=== PATIENT | female | born 1945 | race Caucasian/White ===

== ENCOUNTER 2017-01-17 12:45 | Emergency (ER) | payer MEDICARE, OTHER ==
[2017-01-17 13:10] VITALS: BP 170/86
--- NOTE | 2017-01-17 13:11 | ED Physician Documentation ---
PD HPI SKIN - Stated complaint Stated Complaint: RASH - Chief complaint Chief Complaint: Wound - History obtained from History obtained from: Patient - History of Present Illness Timing - onset: Other (She has chronic back pain and sciatica and had an increase in her back pain a few days ago, but today noticed a rash to the right side of her tailbone radiating down towards the groin. She wonders if she might have shingles.) Review of Systems Constitutional: denies: Fever, Chills Nose: denies: Rhinorrhea / runny nose, Congestion Cardiac: denies: Chest pain / pressure, Palpitations Respiratory: denies: Dyspnea, Cough PD PAST MEDICAL HISTORY - Present Medications Home Medications: Ambulatory Orders Medication Instructions Recorded Confirmed Acyclovir 800 mg PO 5XD 10 Days 01/17/17 HYDROcod/ACETAM 5/325 [[place] 5/325] 1 - 2 ea PO Q6H PRN #15 tablet 01/17/17 predniSONE [Deltasone] 20 mg PO [id number] #21 tab 01/17/17 - Allergies Allergies/Adverse Reactions: Allergies Allergy/AdvReac Type Severity Reaction Status Date / Time acetaminophen [From Percocet] Allergy Hives Verified 01/17/17 13:11 oxycodone HCl * Allergy Hives Verified 01/17/17 13:11 [From Percocet] Penicillins Allergy Rash Verified 01/17/17 13:11 Sulfa (Sulfonamide Allergy Rash Verified 01/17/17 13:11 Antibiotics) PD ED PE NORMAL - Vitals Vital signs reviewed: Yes - General General: Alert and oriented X 3, No acute distress - Derm Derm: Other (Typical shingles to the right side of the sacrum and right below the gluteal crease on the right.) - Neuro Neuro: Alert and oriented X 3, Normal speech - Psych Psych: Normal mood, Normal affect Results - Vitals Vitals: Vital Signs - 24 hr 01/17/17 12:50 Temperature 36.6 C Heart Rate 72 Respiratory 12 Rate Blood Pressure 170/86 H O2 Saturation 96 Oxygen O2 Source Room air PD MEDICAL DECISION MAKING - ED course ED course: The patient was counseled as to the diagnosis and need for followup. I counseled the patient with regard to signs and symptoms that would necessitate an urgent reevaluation in the emergency department. They understand they are welcome to return at any time if worse or if not improving as expected. This document was made in part using voice recognition software. While efforts are made to proofread this document, sound alike and grammatical errors may occur. Departure - Departure Disposition: 01 Home, Self Care Clinical Impression: Herpes zoster Qualifiers: Herpes zoster complications: without complications Qualified Code(s): B02.9 - Zoster without complications Condition: Good Record reviewed to determine appropriate education?: Yes Instructions: ED Shingles Prescriptions: Acyclovir 800 mg PO 5XD 10 Days predniSONE [Deltasone] 20 mg PO [id number] #21 tab HYDROcod/ACETAM 5/325 [[place] 5/325] 1 - 2 ea PO Q6H PRN #15 tablet PRN Reason: Pain Comments: Call your doctor to arrange a follow up appointment. Make the next available appointment. In the interim return anytime if worse or if new symptoms develop. Your blood pressure was elevated today on check in to the emergency department. This does not mean that you have hypertension, it is a common phenomenon to check into the emergency department and have elevated blood pressure. I recommend that you see your primary care physician within the week to have it rechecked when you're feeling better. Do not drink or drive while on narcotic pain medicine. Note that many narcotic pain relievers also contain tylenol/acetaminophen. Please ensure that your total dose of acetaminophen from all sources does not exceed 3 grams (3000mg) per day. You may constipated on this medication, take a stool softener such as "Colace" twice a day while you are on it. Also recommend a cgys-vll-neosboy laxative such as senna or MiraLAX any day that you do not have a bowel movement. If you received narcotic pain medication in the emergency department, do not drive or operate machinery for the next 24 hours.
== END 2017-01-17 13:14 | disposition home or self-care (01) ==
LOC: ED 12:45
DX: B02.9 Zoster without complications (principal); R03.0 Elevated blood-pressure reading, without diagnosis of hypertension
CPT/HCPCS: 99283

== ENCOUNTER 2017-04-14 07:43 | Outpatient (CLI) | payer MEDICARE, OTHER ==
[2017-04-14 11:52] LABS: BASOPHILS % (AUTO) 0.6 %; EOSINOPHILS # (AUTO) 0.1 10^3/uL (0.0-0.7); EOSINOPHILS % (AUTO) 2.2 %; HCT - HEMATOCRIT 43.5 % (37.0-47.0); HGB - HEMOGLOBIN 14.8 g/dL (12.0-16.0); LYMPHOCYTES # (AUTO) 1.5 10^3/uL (1.5-3.5); LYMPHOCYTES % (AUTO) 31.5 %; MEAN CORPUSCULAR HEMOGLOBIN 30.4 pg (27.0-31.0); MEAN CORPUSCULAR HGB CONC 34.1 g/dL (32.0-36.0); MEAN CORPUSCULAR VOLUME 89.1 fL (81.0-99.0); MEAN PLATELET VOLUME 9.3 fL (7.9-10.8); MONOCYTES # (AUTO) 0.3 10^3/uL (0.0-1.0); NEUTROPHILS # (AUTO) 2.8 10^3/uL (1.5-6.6); NEUTROPHILS % (AUTO) 59.7 %; RED BLOOD COUNT 4.88 10^6/uL (4.20-5.40); RED CELL DISTRIBUTION WIDTH 12.8 % (12.0-15.0); UNCORRECTED WHITE BLOOD COUNT 4.6 x10^3/uL; WHITE BLOOD COUNT 4.6 x10^3/uL (4.8-10.8)
[2017-04-14 12:03] LABS: ALBUMIN/GLOBULIN RATIO 1.6 (1.0-2.2); BILIRUBIN,TOTAL 0.8 mg/dL (0.2-1.0); BUN - BLOOD UREA NITROGEN 15 mg/dL (6-20); CALCIUM 9.6 mg/dL (8.5-10.3); CARBON DIOXIDE - CO2 28 mmol/L (21-32); CHLORIDE 105 mmol/L (101-111); CHOLESTEROL 253 mg/dL; CREATININE 0.6 mg/dL (0.4-1.0); GFR - MDRD 98 (>89); GLUCOSE 103 mg/dL (70-100); HDL CHOLESTEROL 51 mg/dL; LDL/HDL RATIO 3.5 (<4.4); POTASSIUM 3.9 mmol/L (3.5-5.0); SODIUM 139 mmol/L (135-145); TOTAL PROTEIN 6.8 g/dL (6.7-8.2); TRIGLYCERIDES 120 mg/dL; VLDL CHOLESTEROL 24 mg/dL
== END 2017-04-14 07:44 | disposition home or self-care (01) ==
LOC: LAB.F 07:43
PROVIDERS: ATTEND Internal Medicine
DX: E78.2 Mixed hyperlipidemia (principal)
CPT/HCPCS: 36415; 80053; 80061; 84443; 85025; 86803

== ENCOUNTER 2017-07-14 12:10 | Emergency (ER) | payer MEDICARE, OTHER ==
[2017-07-14 12:30] VITALS: BP 158/80
--- NOTE | 2017-07-14 13:02 | ED Physician Documentation ---
PD HPI LOWER EXT INJURY - Stated complaint Stated Complaint: LEFT LEG SWOLLEN - Chief complaint Chief Complaint: Ext Problem - History obtained from History obtained from: Patient - History of Present Illness PD HPI LOW EXT INJURY LOCATION: Left, Lower leg, Ankle Type of injury: No: Fall, Twist, Blunt / blow Timing - onset: How many days ago (3-4) Timing - duration: Days Timing - details: Gradual onset, Still present Improved by: Rest, Ice Worsened by: Palpating Associated symptoms: No: Weakness, Numbness Contributing factors: Prior ortho surgery. 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 - Present Medications Home Medications: Ambulatory Orders Medication Instructions Recorded Confirmed Biotin [Biotin] 5,000 mg PO DAILY 07/14/17 07/14/17 Cetrizine 10 mg PO DAILY 07/14/17 07/14/17 Cholesteroff 900 mg PO DAILY 07/14/17 07/14/17 Htp Mood Enhancer 100 mg PO DAILY 07/14/17 Lisinopril 10 mg PO DAILY 07/14/17 07/14/17 Mirbetriq 25 mg PO DAILY 07/14/17 07/14/17 Mv-Mn/FA/Vit K/Lycop/Lut/Coq10 1 tab PO DAILY 07/14/17 07/14/17 [Daily Multivitamin Capsule] [place]-3S/Dha/Epa/Fish Oil/D3 1 each PO 07/14/17 [[place]-3 + D Softgel] Rhodiola Rosea Root 450 mg PO DAILY 07/14/17 - Allergies Allergies/Adverse Reactions: Allergies Allergy/AdvReac Type Severity Reaction Status Date / Time oxycodone HCl * Allergy Hives Verified 07/14/17 12:31 [From Percocet] Penicillins Allergy Rash Verified 07/14/17 12:31 Sulfa (Sulfonamide Allergy Rash Verified 07/14/17 12:31 Antibiotics) - Social History Does the pt smoke?: No Smoking Status: Never smoker Does the pt drink ETOH?: No Does the pt have substance abuse?: No - Immunizations Immunizations are current?: Yes - POLST Patient has POLST: No PD ED PE NORMAL - Vitals Vital signs reviewed: Yes - General General: Alert and oriented X 3, No acute distress, Well developed/nourished - HEENT HEENT: Atraumatic - Neck Neck: Supple, no meningeal sign, No adenopathy - Cardiac Cardiac: RRR - Respiratory Respiratory: Clear bilaterally - Extremities Extremities: No deformity, No tenderness to palpate, No calf tenderness / cord Results - Vitals Vitals: Vital Signs - 24 hr 07/14/17 12:24 Temperature 36.1 C L Heart Rate 75 Respiratory 16 Rate Blood Pressure 158/80 H O2 Saturation 98 Oxygen O2 Source Room air - Rads (name of study) duplex U/S of left leg. Radiology: Prelim report reviewed (no DVT. Superficial phlebitis noted. ) PD MEDICAL DECISION MAKING - ED course Complexity details: reviewed results (no DVT; there is superficial phlebitis by US. ), considered differential, d/w patient Departure - Departure Disposition: 01 Home, Self Care Clinical Impression: Swelling of left lower extremity Superficial thrombophlebitis Qualifiers: Superficial thrombophlebitis-Involved body area: lower extremity Laterality: left Qualified Code(s): I80.02 - Phlebitis and thrombophlebitis of superficial vessels of left lower extremity Condition: Stable Record reviewed to determine appropriate education?: Yes Instructions: ED Phlebitis Superficial Follow-Up: MARNIE DAVEY SI [Primary Care Provider] - Comments: Ibuprofen or naproxen fogi-gtj-aywptok tablets, 2 tablets twice a day for the next week or so. Elevate and rest the leg often but also he has been walking around on it regularly. Heat or warm towels to the sore area in the back of the calf to help soften the phlebitis in the superficial vein. Recheck if not improved over the next week. If you have persistent or worsening symptoms, the ultrasound can be repeated in a week to ensure it is not progressed into the deep veins. Discharge Date/Time: 07/14/17 16:08
--- NOTE | 2017-07-14 15:41 | Ultrasound Report ---
LEFT LEG VENOUS DUPLEX: 07/14/2017 CLINICAL INDICATION: Swelling, pain. TECHNIQUE: Real-time sonographic vascular imaging was performed by the sales force administrator through the left lower extremity utilizing both color flow and Doppler spectral analysis. Multiple charter representative static images were saved for review. FINDINGS: A left lower extremity venous sonogram is performed revealing the common femoral, superficial femoral, profunda femoris, and popliteal veins to be adequately visualized without intraluminal defects. There is normal venous compression, augmentation, phasicity, and spontaneity of venous flow. In the calf, the visualized more cephalad portions of posterior tibial and peroneal veins are grossly compressible, without filling defects. There is superficial thrombophlebitis of the distal greater saphenous vein in the calf. IMPRESSION: NO EVIDENCE OF DEEP VENOUS THROMBOSIS. JOB #: [id number] EXT JOB #: [id number]
== END 2017-07-14 16:08 | disposition home or self-care (01) ==
LOC: ED 12:10
DX: I80.02 Phlebitis and thrombophlebitis of superficial vessels of left lower extremity (principal); I10 Essential (primary) hypertension
CPT/HCPCS: 99283

== ENCOUNTER 2018-03-22 08:29 | Outpatient (CLI) | payer MEDICARE, OTHER ==
[2018-03-22 12:02] LABS: ALBUMIN/GLOBULIN RATIO 1.7 (1.0-2.2); ALKALINE PHOSPHATASE 57 IU/L (42-121); ALT ALANINE AMINOTRANSFERASE 45 IU/L (10-60); AST ASPARTATE AMINOTRANSFERASE 28 IU/L (10-42); BUN - BLOOD UREA NITROGEN 13 mg/dL (6-20); CARBON DIOXIDE - CO2 28 mmol/L (21-32); CHLORIDE 106 mmol/L (101-111); CHOL/HDL RATIO 4.8 (<4.4); CHOLESTEROL 264 mg/dL; CREATININE 0.5 mg/dL (0.4-1.0); GFR - MDRD 120 (>89); GLUCOSE 96 mg/dL (70-100); HDL CHOLESTEROL 55 mg/dL; LDL CHOLESTEROL,CALCULATED 185 mg/dL; LDL/HDL RATIO 3.4 (<4.4); SODIUM 139 mmol/L (135-145); TOTAL PROTEIN 6.4 g/dL (6.7-8.2); VLDL CHOLESTEROL 24 mg/dL
== END 2018-03-22 08:30 | disposition home or self-care (01) ==
LOC: LAB.F 08:29
PROVIDERS: ATTEND Internal Medicine
DX: Z12.11 Encounter for screening for malignant neoplasm of colon (principal); E78.2 Mixed hyperlipidemia
CPT/HCPCS: 36415; 80053; 80061; 82270; 83721; 84443; 89055

== ENCOUNTER 2020-09-05 14:30 | Inpatient (IN) | payer MEDICARE, OTHER ==
[2020-09-05] MEDS ORDERED: MORPHINE 2 MG/ML CARPUJECT IVP STA (14:48)
[2020-09-05] MEDS ORDERED: ONDANSETRON 4 MG/2 ML VIAL IVP STA (14:48)
--- NOTE | 2020-09-05 14:48 | ED Physician Documentation ---
PD HPI CHEST PAIN - Stated complaint Stated Complaint: NAUSEOUS, PAIN IN BACK, LOW GRADE TEMP - Chief complaint Chief Complaint: Cardiac - History obtained from History obtained from: Patient - History of Present Illness Timing - onset: How many hours ago (4), Today Timing - onset during: Rest Timing - duration: Hours (onset about 10 am today of severe chest/upper abd pain associated with nausea/vomiting, pallor, lightheaded.) Timing - details: Abrupt onset Quality: Pressure, Aching, Pain Location: Substernal, Other (right upper abd) Radiation: Back, Abdominal Improved by: No: Rest Worsened by: Movement. No: Exertion, Inspiration Associated symptoms: Diaphoresis, Nausea, Vomiting, Feeling faint / dizzy, General Weakness. No: Shortness of air, Palpitations Similar symptoms before: Has not had sx before Recently seen: Not recently seen Review of Systems Constitutional: denies: Fever, Chills, Myalgias Nose: denies: Rhinorrhea / runny nose, Congestion Throat: denies: Sore throat Cardiac: reports: Chest pain / pressure (just today - no recent exertional nor positional CPs.). denies: Palpitations, Pedal edema, Calf pain Respiratory: denies: Dyspnea, Cough GI: reports: Abdominal Pain, Nausea, Vomiting. 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 - Present Medications Home Medications: Ambulatory Orders Medication Instructions Recorded Confirmed Biotin 5,000 mg PO DAILY 07/14/17 07/14/17 Cetrizine 10 mg PO DAILY 07/14/17 07/14/17 Cholesteroff 900 mg PO DAILY 07/14/17 07/14/17 Htp Mood Enhancer 100 mg PO DAILY 07/14/17 Mirbetriq 25 mg PO DAILY 07/14/17 07/14/17 Mv-Min/Folic/Vit K/Lycop/Coq10 1 tab PO DAILY 07/14/17 07/14/17 [Daily Multivitamin Capsule] [place]-3S/Dha/Epa/Fish Oil/D3 1 each PO 07/14/17 [Equality-3 + D Softgel] Rhodiola Kettya Root 450 mg PO DAILY 07/14/17 lisinopriL [Lisinopril] 10 mg PO DAILY 07/14/17 07/14/17 - Allergies Allergies/Adverse Reactions: Allergies Allergy/AdvReac Type Severity Reaction Status Date / Time oxycodone HCl * Allergy Hives Verified 09/05/20 14:35 [From Percocet] Penicillins Allergy Rash Verified 09/05/20 14:35 Sulfa (Sulfonamide Allergy Rash Verified 09/05/20 14:35 Antibiotics) - Living Situation Living Situation: reports: Alone Living Arrangement: reports: At home - Social History Does the pt smoke?: No Smoking Status: Never smoker Does the pt drink ETOH?: No Does the pt have substance abuse?: No - Family History Family history: denies: Aortic aneursym, Aortic dissection - Immunizations Immunizations are current?: Yes - POLST Patient has POLST: No PD ED PE NORMAL - Vitals Vital signs reviewed: Yes - General General: Alert and oriented X 3, Well developed/nourished, Other (Pale and diaphoretic and appears in considerable pain. Nauseated.) - HEENT HEENT: Pharynx benign. No: Moist mucous membranes - Neck Neck: Supple, no meningeal sign, No adenopathy - Cardiac Cardiac: RRR, No murmur - Respiratory Respiratory: Clear bilaterally, Other (no chestwall tenderness) - Abdomen Abdomen: Soft, No organomegaly, Other (A known ventral umbilical hernia which she states is not feeling any bigger than usual. It is easily palpable and reducible without tenderness. Right upper quadrant focally tender with guarding.). No: Normal bowel sounds (diminished) - Female Female : Deferred - Rectal Rectal: Deferred - Back Back: No CVA TTP - Derm Derm: No rash. No: Normal color (pallor) - Extremities Extremities: No deformity, No tenderness to palpate, No edema, No calf tenderness / cord - Neuro Neuro: Alert and oriented X 3, No motor deficit, Normal speech Results - Vitals Vitals: Vital Signs - 24 hr 09/05/20 09/05/20 09/05/20 14:35 14:48 15:10 Temperature 36.4 C L 36.5 C Heart Rate 60 60 88 Respiratory 22 22 24 Rate Blood Pressure 170/48 H 170/48 H 147/61 H O2 Saturation 98 98 97 09/05/20 15:30 Temperature Heart Rate 90 Respiratory 24 Rate Blood Pressure 159/68 H O2 Saturation 96 Oxygen O2 Source Room air - EKG (time done) 14:43 Rate: Rate (enter#) (58) Rhythm: NSR [place]: Normal Intervals: Normal HI QRS: Normal Ischemia: Normal ST segments. No: ST elevation c/w ischemia, ST depression - Labs Labs: Laboratory Tests 09/05/20 09/05/20 09/05/20 14:45 14:45 14:45 WBC 18.2 H RBC 4.96 Hgb 15.0 Hct 45.4 MCV 91.5 MCH 30.2 MCHC 33.0 RDW 12.7 Plt Count 310 MPV 9.5 Neut # (Auto) 15.8 H Lymph # (Auto) 1.5 [place] # (Auto) 0.7 Eos # (Auto) 0.0 Baso # (Auto) 0.1 Absolute Nucleated RBC 0.00 Nucleated RBC % 0.0 Sodium 139 Potassium 3.5 Chloride 99 L Carbon Dioxide 25 Anion Gap 15.0 H BUN 18 Creatinine 0.6 Estimated GFR (MDRD) 97 Glucose 226 H Calcium 9.7 Magnesium 1.9 Total Bilirubin 1.0 AST 77 H ALT 62 H Alkaline Phosphatase 64 Troponin I High Sens 2.6 B-Natriuretic Peptide Total Protein 7.7 Albumin 4.7 Globulin 3.0 Albumin/Globulin Ratio 1.6 Lipase 2544 H 09/05/20 14:45 WBC RBC Hgb Hct MCV MCH MCHC RDW Plt Count MPV Neut # (Auto) Lymph # (Auto) [place] # (Auto) Eos # (Auto) Baso # (Auto) Absolute Nucleated RBC Nucleated RBC % Sodium Potassium Chloride Carbon Dioxide Anion Gap BUN Creatinine Estimated GFR (MDRD) Glucose Calcium Magnesium Total Bilirubin AST ALT Alkaline Phosphatase Troponin I High Sens B-Natriuretic Peptide 35 Total Protein Albumin Globulin Albumin/Globulin Ratio Lipase - Rads (name of study) chest xray Radiology: Prelim report reviewed (no acute process), See rad report abd CT Radiology: Prelim report reviewed (Moderate sized upper anterior abdominal wall defect with hernia that and occludes the distal gastric lumen and part of the duodenum. Some stranding. No other bowel inflammation. Moderate gallbladder distention with possible pericholecystic fluid. normal appendix.), See rad report abd U/S Radiology: Prelim report reviewed, See rad report, Other (from US tech: limited view due to hernia. CBD 5 mm, no GB thickening nor surrounding fluid. No stones. ) PD MEDICAL DECISION MAKING - ED course Complexity details: reviewed results (Chest x-ray are normal. Troponin is negative. She does have elevated lipase. CT abdomen showing known ventral hernia with question of some stranding. Some pericholecystic fluid and distended gallbladder. We will check ultrasound to look for bile duct. ), re- evaluated patient (improved pain and nausea. Better color after meds and fluids. ), considered differential (Patient with abrupt onset chest/upper abdominal pain with nausea and vomiting around 10 AM this morning. Continued for few hours. Concern for heart related versus upper abdominal process.), d/w it web development consultant (Discussed with Dr. Anglin on the phone and she felt treating the pancreatitis would be appropriate. Given normal liver enzymes and no obvious ductal process on CT, then medicine treatment of the pancreatitis. Potential other testing if persistent abn labs could be MRCP. No obvious surgical process) ED course: We will get a respiratory PCR panel to evaluate for viral infections in anticipation of admission or transfer. Departure - Departure Disposition: [facility] DC/Xfer Clinical Impression: Acute upper abdominal pain Acute pancreatitis Qualifiers: Pancreatitis type: unspecified pancreatitis type Acute pancreatitis complication: unspecified Qualified Code(s): K85.90 - Acute pancreatitis without necrosis or infection, unspecified Condition: Stable Record reviewed to determine appropriate education?: Yes
[2020-09-05 15:00] LABS: BASOPHILS # (AUTO) 0.1 10^3/uL (0.0-0.1); BASOPHILS % (AUTO) 0.3 %; EOSINOPHILS % (AUTO) 0.1 %; LYMPHOCYTES # (AUTO) 1.5 10^3/uL (1.5-3.5); LYMPHOCYTES % (AUTO) 8.4 %; MEAN CORPUSCULAR HEMOGLOBIN 30.2 pg (27.0-31.0); MEAN CORPUSCULAR VOLUME 91.5 fL (81.0-99.0); MEAN PLATELET VOLUME 9.5 fL (7.9-10.8); MONOCYTES # (AUTO) 0.7 10^3/uL (0.0-1.0); MONOCYTES % (AUTO) 3.6 %; NEUTROPHILS # (AUTO) 15.8 10^3/uL (1.5-6.6); PLT - PLATELET COUNT 310 10^3/uL (130-450); RED BLOOD COUNT 4.96 10^6/uL (4.20-5.40); RED CELL DISTRIBUTION WIDTH 12.7 % (12.0-15.0); WHITE BLOOD COUNT 18.2 x10^3/uL (4.8-10.8)
[2020-09-05] MEDS ORDERED: IOVERSOL 320 100 ML VIAL IVP ONE ×2 (15:04→15:19)
--- NOTE | 2020-09-05 15:12 | XRAY Report ---
PROCEDURE: Chest 1 View X-Ray INDICATIONS: Chest Pain TECHNIQUE: One view of the chest was acquired. COMPARISON: None FINDINGS: Surgical changes and devices: Fusion hardware in lower thoracic and lumbar spine is seen. Lungs and pleura: No pleural effusions or pneumothorax. Mild pulmonary vascular congestion is seen. No definite focal infiltrate. Mediastinum: Mediastinal contours appear normal. Heart size is normal. Bones and chest wall: No suspicious bony lesions. Overlying soft tissues appear unremarkable. IMPRESSION: Mild congestion. No definite focal infiltrate. No pleural effusion or pneumothorax. Reviewed by: Krish Blackmon MD on 09/05/2020 3:11 PM PST Approved by: Krish Blackmon MD on 09/05/2020 3:11 PM PST Station ID: [id number]
[2020-09-05 15:27] LABS: ALBUMIN 4.7 g/dL (3.2-5.5); ALBUMIN/GLOBULIN RATIO 1.6 (1.0-2.2); CALCIUM 9.7 mg/dL (8.5-10.3); CREATININE 0.6 mg/dL (0.4-1.0); MAGNESIUM 1.9 mg/dL (1.7-2.8); TOTAL PROTEIN 7.7 g/dL (6.7-8.2)
--- NOTE | 2020-09-05 15:35 | CT Report ---
PROCEDURE: Abdomen/Pelvis W INDICATIONS: RUQ abd pain abrupt onset few hours ago CONTRAST: IV CONTRAST: Optiray 320 ml: 100 PO CONTRAST: *NO PO CONTRAST TECHNIQUE: After the administration of IV contrast, 5 mm thick sections acquired from the diaphragms to the symp hysis. 5 mm thick coronal and sagittal reformats were acquired. For radiation dose reduction, the f ollowing was used: automated exposure control, adjustment of mA and/or kV according to patient size. COMPARISON: None. FINDINGS: Image quality: Excellent. ABDOMEN: Lung bases: Dependent atelectasis in posterior aspect of bilateral lung bases are seen. Heart size is enlarged, no pericardial effusion. Solid organs: Liver and spleen are normal in size. Tiny hypodensities are seen in right hepatic lobe measures up to 5 mm in size and is are too small to characterize. Gallbladder is distended with ques tionable pericholecystic edema/fluid. No significant gallbladder wall thickening. No calcified gallst one is seen. Biliary system is non dilated. Pancreas enhances normally. No adrenal nodules. Kidne ys demonstrate normal size and enhancement, without hydronephrosis. Lower pole left renal cyst is se en measures 3.6 x 3.9 cm in size. Peritoneum and bowel: There is a moderate-sized upper anterior abdominal wall defect measures 4.6 cm in diameter containing mid to distal portion of stomach lumen and proximal duodenum. There is suggest ion of gastric and duodenal wall thickening with adjacent mesenteric fat stranding concerning for inc arceration. More distal small bowel loops are nondistended. No other area of abnormal bowel wall thic kening. No free fluid or free air. Appendix is visualized and is within normal limits. Nodes and vessels: No retroperitoneal or mesenteric adenopathy by size criteria. Aorta and inferior vena cava are normal in size. Moderate atherosclerotic calcifications are seen throughout the abdom inal aorta. Miscellaneous: Upper anterior abdominal wall ventral hernia as above. PELVIS: Genitourinary: Bladder wall thickness is normal. Miscellaneous: No inguinal hernias or adenopathy. Bones: No suspicious bony lesions. No vertebral body compression fractures. Extensive fusion of lo wer thoracic and upper lumbar spine is seen. IMPRESSION: 1. Moderate size anterior upper abdominal wall defect containing distal gastric lumen and proximal du odenum with gastric and duodenal wall thickening and mild adjacent mesenteric fat stranding concernin g for developing incarceration. No other area of abnormal bowel wall thickening. No free fluid or yolie e air. Normal appendix. 2. Gallbladder is mildly distended with questionable pericholecystic fluid. No calcified gallstone. A calculus cholecystitis cannot be entirely excluded. 3. Tiny 3 to 5 mm hypodensity seen in right hepatic lobe and are too small to adequately characterize . Finding likely represent benign process such as hepatic cysts. Reviewed by: Krish Blackmon MD on 09/05/2020 3:34 PM PST Approved by: Krish Blackmon MD on 09/05/2020 3:34 PM PST Station ID: [id number]
[2020-09-05] MEDS ORDERED: SODIUM CHLORIDE 0.9% 1,000 ML IV STA (15:58)
[2020-09-05] MEDS ORDERED: HYDROmorphone 1 MG/ML CARPUJECT IVP STA ×2 (15:58→16:35)
[2020-09-05] MEDS ORDERED: LACTATED RINGERS 1,000 ML IV STA (16:53)
[2020-09-05 17:08] LABS: C. PNEUMONIAE- RESP PCR PANEL NOT DETECTED
--- NOTE | 2020-09-05 17:21 | Ultrasound Report ---
PROCEDURE: Abdomen Limited INDICATIONS: RUQ pain, distended GB on CT; lipase elevated TECHNIQUE: Real-time focused scanning was performed of the abdomen, with image documentation. COMPARISON: Correlation is made with the CT abdomen and pelvis examination previously performed on 0 09/05/2020. FINDINGS: The liver demonstrates normal size and echogenicity. No liver lesions are detected. 2 sma ll liver cysts are seen, which measure up to 7 mm The gallbladder is distended. Potential sludge is seen within it. The gallbladder wall is minimally t hickened at 4 mm. No specific pericholecystic fluid can be seen. The sonographic Monet's sign is equ ivocal, as the patient is on pain medication. No biliary ductal dilatation is seen. The common bile duct measures 6 mm. The pancreas is not well seen, secondary to overlying bowel gas. The visualized right kidney is unremarkable. IMPRESSION: Distended gallbladder again seen. Potential sludge is seen within it. There is minimal gallbladder wa ll thickening. The sonographic Monet's sign is considered to be equivocal, as the patient is on pain medication. Note: Concordant preliminary findings given by the cloth reeler upon the completion of the examination to Dr. Miguel at 4:50 PM on 09/05/2020. Reviewed by: Monroe Mohan MD on 09/05/2020 4:19 PM [place] Approved by: Monroe Mohan MD on 09/05/2020 4:19 PM AKST Station ID: [id number]
[2020-09-05] MEDS: D5NS W/20 MEQ KCL 1,000 ML IV SCH (18:55)
--- NOTE | 2020-09-05 19:54 | HISTORY & PHYSICAL EXAMINATION ---
Chief Complaint - Chief Complaint Chief Complaint: Epigastric pain with nausea, diaphoresis, substernal chest pain History of Present Illness - Admitted From Admitted From:: Home via private vehicle - History Obtained From Records Reviewed: [employer] History obtained from: Patient, Dr. Eaton Exam Limitations: None - History of Present Illness HPI Comment/Other: 75-year-old white female whose main medical problem in the past has been high blood pressure. She was seen in 2017 in our emergency room for shingles of the right leg, as well as superficial thrombophlebitis of the left leg a few months later. She has been in her normal state of health. No antecedent changes with regards to diet, alcohol use. She does not have a history of gallstones. No history of use of hydrochlorothiazide or proton pump numbers. She is on an SYLVIA inhibitor for blood pressure. She came to the emergency room around 230 this afternoon. At breakfast she had a nausea after eating. Then at 10:30 in the morning she had an abrupt onset of epigastric abdominal pain. She describes it as a "band of pain around my chest". She was short of breath with it, nauseated, pale and clammy. He would radiate up into the substernal area. She drove her self to the emergency room her blood pressure was 174/48. Respirations were 22. She was 98% on room air. She was afraid she was having a heart attack so she came. She was evaluated by Dr. Miguel who found her to have a soft, easily reducible large ventral hernia. She did have right upper quadrant tenderness with guarding. Diminished bowel sounds. She was in considerable pain and quite diaphoretic. EKG was negative for ST changes, and troponins were normal. Abdomen CT was done and she had a moderate-sized upper anterior abdominal wall defect with hernia that included the distal gastric lumen and part of the duodenum. Some stranding. Moderate gallbladder distention with possible pericholecystic fluid. Normal appendix. The ultrasound report said it was limited due to her hernia but her common bile duct was only 5 mm. No gallbladder thickening or surrounding fluid. No stones. White cell count was elevated at 18.2. Random glucose 226. AST 77, ALT 62. Alk phos normal at 6.4. Total bili 1.0. Lipase was 2544. Dr. Miguel contacted the daytime hospitalist. They did preliminary admit orders. I am now seeing the patient is a, shift at [address] Gali Anglin has a lready been contacted. She does not feel that the patient is a surgical candidate at this time. History - Past Medical History Cardiovascular: reports: Hypertension, Other (Superficial thrombophlebitis 2017) Endocrine/Autoimmune: reports: None GI: reports: None CONTRACT TECHNICIAN: reports: Miscarriage(s) (1), Other (G4, P3. DUB Resulted in hysterectomy.) : reports: Incontinence Musculoskeletal: reports: Chronic back pain (with sciatica), Other (left leg schwanoma removed) MRSA Hx?: No - Past Surgical History /CONTRACT TECHNICIAN: reports: Hysterectomy Cardiovascular: reports: Vascular surgery (left leg vein ligation) Derm: reports: Skin cancer surgery - Family & Social History Family History Comment/Other: Dad at age 64 of a massive heart attack. Mom at 84 of complications of dementia. One half sister of recurrent melanoma. 1 sister has severe irritable bowel syndrome. 1 brother recently developed a bladder mass. 3 children are completely healthy Living arrangement: At home Living Situation: Alone Social History Notes: She has been since the 1970s. Retired. Lives in her own home. Started smoking at the age of 19 and stop smoking at the age of 69. She smoked up to 1 pack/day giving her a 15-annz-jhly history. She was an alcoholic. She has been sober for 30 years and has not had a drink since then. No other history of recreational substance abuse. - Substance History Use: Uses substance without health or social issues: NONE Abuse: Recurrent use of substance despite neg consequences: NONE Dependence: Experiences withdrawal or developed tolerances: NONE - POLST Patient has POLST: No POLST Status: Full Code Meds/Allgy - Home Medications Home Medications: Ambulatory Orders Medication Instructions Recorded Confirmed Biotin 5,000 mg PO DAILY 07/14/17 07/14/17 Cetrizine 10 mg PO DAILY 07/14/17 07/14/17 Cholesteroff 900 mg PO DAILY 07/14/17 07/14/17 Htp Mood Enhancer 100 mg PO DAILY 07/14/17 Mirbetriq 25 mg PO DAILY 07/14/17 07/14/17 Mv-Min/Folic/Vit K/Lycop/Coq10 1 tab PO DAILY 07/14/17 07/14/17 [Daily Multivitamin Capsule] [place]-3S/Dha/Epa/Fish Oil/D3 1 each PO 07/14/17 [[place]-3 + D Softgel] Rhodiola Rosea Root 450 mg PO DAILY 07/14/17 lisinopriL [Lisinopril] 10 mg PO DAILY 07/14/17 07/14/17 - Allergies Allergies/Adverse Reactions: Allergies Allergy/AdvReac Type Severity Reaction Status Date / Time oxycodone HCl * Allergy Hives Verified 09/05/20 14:35 [From Percocet] Penicillins Allergy Rash Verified 09/05/20 14:35 Sulfa (Sulfonamide Allergy Rash Verified 09/05/20 14:35 Antibiotics) Review of Systems - Other Findings Other Findings: 13 point review of systems discussed with the patient. Other than her abrupt onset of GI symptomatology, she is negative for ENT, cardiac, pulmonary complaints. She has chronic back pain. Chronic mild osteoarthritis. All other review of systems are negative. Prior Level of Functionality: Completely independent with activities of daily living. She does not use any durable medical equipment. Drives a car. Pays her own bills. Cleans her own house. Exam - Vital Signs Reviewed Vital Signs: Yes Vital Signs: Vital Signs x48h Temp Pulse Pulse Resp BP BP Pulse Ox 09/05/20 18:27 36.6 C 104 H 24 157/60 H 94 09/05/20 18:02 104 H 34 H 165/72 H 96 09/05/20 17:33 105 H 30 H 154/87 H 97 09/05/20 17:05 100 27 H 156/67 H 92 09/05/20 15:30 90 24 159/68 H 96 09/05/20 15:10 88 24 147/61 H 97 09/05/20 14:48 36.5 C 60 22 170/48 H 98 09/05/20 14:35 36.4 C L 60 22 170/48 H 98 - Physical Exam General Appearance: positive: Alert, Moderate distress (Due to nausea and epigastric pain. Intermittent grunting throughout the exam as she has waves of pain) Eyes Bilateral: positive: PERRL, EOMI ENT: positive: Pharynx nml Neck: positive: No JVD. negative: Lymphadenopathy (R), Lymphadenopathy (L), Stiff neck Respiratory: positive: No respiratory distress. negative: Wheezes, Rales, Rhonchi Cardiovascular: positive: Regular rate & rhythm. negative: Systolic murmur, Gallop/S4, Friction rub Peripheral Pulses: positive: 1+ Abdomen: positive: No organomegaly, No distention, Tenderness (Epigastrium to right upper quadrant), Guarding (Right upper quadrant), Rebound (Right upper quadrant), Other (Hypoactive bowel sounds.) Skin: positive: Warm, Dry, Diaphoresis, Pallor Extremities: positive: Non-tender, Full ROM, No pedal edema Neurologic/Psychiatric: positive: Oriented x3, CN's nml (2-12), Motor nml, Sensation nml Conclusion/Plan - Problem List (1) Acute pancreatitis Conclusion/Plan: I spent some time discussing etiology of pancreatitis with the patient. She is adamant that alcohol is not been a problem for 30 years. She has no history of gallstones. No previous belching, flatulence. No recent changes in diet to lose weight. No increase in fatty food intake. Plan: Inpatient admission Hopefully we can get an MRCP but she has had back surgery with metal in her back Supportive care with IV fluids for hydration, antiemetics for nausea, morphine for pain Daily CBC, CMP, lipase If we cannot get an MRCP, and her lipase level gets worse, we may have to transfer her for a direct ERCP. General surgery feels that she is not a surgical candidate. For biliary colic, Tony's criteria is met with age greater than 70. Gallbladder is not enlarged. LDH is not greater than 250. AST is not greater than 250. She does have a glucose greater than 220. That is 2 points. She will need a repeat criteria score in 48 hours. For completeness sake, troponins will be repeated in 6 hours. Her fear was that she was having a heart attack. I reassured her that with her preliminary data, EKG is normal, troponins are normal. Qualifiers: Pancreatitis type: unspecified pancreatitis type Acute pancreatitis complication: unspecified Qualified Code(s): K85.90 - Acute pancreatitis without necrosis or infection, unspecified (2) Hypertension Conclusion/Plan: As needed hydralazine to keep systolic less than 180, diastolic less than 100 Qualifiers: Hypertension type: essential hypertension Qualified Code(s): I10 - Esse ntial (primary) hypertension (3) Acute hyperglycemia Conclusion/Plan: Patient may been on D5 in the ER. Not sure. Check A1c in the morning.Could this be a reflection of her pancreatitis? (4) Chronic back pain Conclusion/Plan: s/p laminectomy with metal in her spine. this will interfere w MRCP. Plan: prn meds for pain control. Qualifiers: Back pain location: low back pain - Lab Results Lab results reviewed: Yes Fish Bones: 09/05/20 14:45 09/05/20 14:45 - Diagnostic Imaging Results Diagnostic Imaging Results: positive: Final report reviewed Diagnostic Imaging Results Comments: EXAM: [id number] CT/ABPEW ([id number]) PROCEDURE: Abdomen/Pelvis W INDICATIONS: RUQ abd pain abrupt onset few hours ago CONTRAST: IV CONTRAST: Optiray 320 ml: 100 PO CONTRAST: *NO PO CONTRAST TECHNIQUE: After the administration of IV contrast, 5 mm thick sections acquired from the diaphragms to the symphysis. 5 mm thick coronal and sagittal reformats were acquired. For radiation dose reduction, the following was used: automated exposure control, adjustment of mA and/or kV according to patient size. COMPARISON: None. FINDINGS: Image quality: Excellent. ABDOMEN: Lung bases: Dependent atelectasis in posterior aspect of bilateral lung bases are seen. Heart size is enlarged, no pericardial effusion. Solid organs: Liver and spleen are normal in size. Tiny hypodensities are seen in right hepatic lobe measures up to 5 mm in size and is are too small to characterize. Gallbladder is distended with questionable pericholecystic edema/fluid. No significant gallbladder wall thickening. No calcified gallstone is seen. Biliary system is non dilated. Pancreas enhances normally. No adrenal nodules. Kidneys demonstrate normal size and enhancement, without hydronephrosis. Lower pole left renal cyst is seen measures 3.6 x 3.9 cm in size. Peritoneum and bowel: There is a moderate-sized upper anterior abdominal wall d efect measures 4.6 cm in diameter containing mid to distal portion of stomach lumen and proximal du odenum. There is suggestion of gastric and duodenal wall thickening with adjacent mesenteric fat stranding concerning for incarceration. More distal small bowel loops are nondistended. No other area of abnormal bowel wall thickening. No free fluid or free air. Appendix is visualized and is within normal limits. Nodes and vessels: No retroperitoneal or mesenteric adenopathy by size criteria. Aorta and inferior vena cava are normal in size. Moderate atherosclerotic calcifications are seen throughout the abdominal aorta. Miscellaneous: Upper anterior abdominal wall ventral hernia as above. PELVIS: Genitourinary: Bladder wall thickness is normal. Miscellaneous: No inguinal hernias or adenopathy. Bones: No suspicious bony lesions. No vertebral body compression fractures. Extensive fusion of lower thoracic and upper lumbar spine is seen. IMPRESSION: 1. Moderate size anterior upper abdominal wall defect containing distal gastric lumen and proximal duodenum with gastric and duodenal wall thickening and mild adjacent mesenteric fat stranding concerning for developing incarceration. No other area of abnormal bowel wall thickening. No free fluid or free air. Normal appendix. 2. Gallbladder is mildly distended with questionable pericholecystic fluid. No calcified gallstone. A calculus cholecystitis cannot be entirely excluded. 3. Tiny 3 to 5 mm hypodensity seen in right hepatic lobe and are too small to adequately characterize. Finding likely represent benign process such as hepatic cysts. Reviewed by: Krish Blackmon MD on 09/05/2020 3:34 PM PST Approved by: Krish Blackmon MD on 09/05/2020 3:34 PM PST EXAM: [id number] US/ABDLTD ([id number]) PROCEDURE: Abdomen Limited INDICATIONS: RUQ pain, distended GB on CT; lipase elevated TECHNIQUE: Real-time focused scanning was performed of the abdomen, with image documentation. COMPARISON: Correlation is made with the CT abdomen and pelvis examination previously performed on 09/05/2020. FINDINGS: The liver demonstrates normal size and echogenicity. No liver lesions are detected. 2 small liver cysts are seen, which measure up to 7 mm The gallbladder is distended. Potential sludge is seen within it. The gallbladder wall is minimally thickened at 4 mm. No specific pericholecystic fluid can be seen. The sonographic Monet's sign is equivocal, as the patient is on pain medication. No biliary ductal dilatation is seen. The common bile duct measures 6 mm. The pancreas is not well seen, secondary to overlying bowel gas. The visualized right kidney is unremarkable. IMPRESSION: Distended gallbladder again seen. Potential sludge is seen within it. There is minimal gallbladder wall thickening. The sonographic Monet's sign is considered to be equivocal, as the patient is on pain medication. Note: Concordant preliminary findings given by the talent development analyst upon the completion of the examination to Dr. Miguel at 4:50 PM on 09/05/2020. Reviewed by: Monroe Mohan MD on 09/05/2020 4:19 PM [place] Approved by: Monroe Mohan MD on 09/05/2020 4:19 PM [place] EXAM: [id number] XR/CXR1VW ([id number]) PROCEDURE: Chest 1 View X-Ray INDICATIONS: Chest Pain TECHNIQUE: One view of the chest was acquired. COMPARISON: None FINDINGS: Surgical changes and devices: Fusion hardware in lower thoracic and lumbar spine is seen. Lungs and pleura: No pleural effusions or pneumothorax. Mild pulmonary vascular congestion is seen. No definite focal infiltrate. Mediastinum: Mediastinal contours appear normal. Heart size is normal. Bones and chest wall: No suspicious bony lesions. Overlying soft tissues appear unremarkable. IMPRESSION: Mild congestion. No definite focal infiltrate. No pleural effusion or pneumothorax. Reviewed by: Krish Blackmon MD on 09/05/2020 3:11 PM PST Approved by: Krish Blackmon MD on 09/05/2020 3:11 PM PST Station ID: [id number] Fireperson: [employer] Reading Radiologist: Krish Blackmon MD Releasing Radiologist: Krish Blackmon MD Released Date Time: 09/05/201510 Report [id number] - EKG Results EKG Interpreted Independently: No EKG Comparison: No prior EKG EKG Findings: Normal sinus rhythm, normal intervals, normal R wave progression, 1 PAC, no acute ST-T wave changes. Core Measures - Anticipated LOS I expect patient to be DC'd or transferred within 96 hours.: Yes - DVT/VTE - Prophylaxis VTE/DVT Device ordered at admit?: Yes
[2020-09-05] MEDS ORDERED: hydrALAZINE INJ 20 MG/ML VIAL IVP PRN (20:18)
[2020-09-05] MEDS: MORPHINE 2 MG/ML CARPUJECT IVP PRN (20:56)
[2020-09-05] MEDS: ONDANSETRON 4 MG/2 ML VIAL IVP PRN (20:56)
[2020-09-05] MEDS: ENOXAPARIN 40 MG/0.4 ML SYRINGE SUBQ SCH (21:24)
[2020-09-05] MEDS: PROMETHAZINE INJ 25 MG in SODIUM CHLORIDE 0.9% 50 ML IV PRN (22:55)
[2020-09-06] MEDS: MORPHINE 2 MG/ML CARPUJECT IVP PRN ×3 (01:12→09:06)
[2020-09-06] MEDS: ONDANSETRON 4 MG/2 ML VIAL IVP PRN ×3 (02:43→18:48)
[2020-09-06] MEDS: D5NS W/20 MEQ KCL 1,000 ML IV SCH ×4 (02:43→21:38)
[2020-09-06 05:34] LABS: BASOPHILS % (AUTO) 0.5 %; EOSINOPHILS % (AUTO) 2.2 %; HGB - HEMOGLOBIN 17.6 g/dL (12.0-16.0); LYMPHOCYTES % (AUTO) 6.9 %; MEAN CORPUSCULAR HEMOGLOBIN 29.8 pg (27.0-31.0); MEAN CORPUSCULAR HGB CONC 32.7 g/dL (32.0-36.0); MEAN CORPUSCULAR VOLUME 91.2 fL (81.0-99.0); MEAN PLATELET VOLUME 9.6 fL (7.9-10.8); MONOCYTES % (AUTO) 3.7 %; NEUTROPHILS % (AUTO) 86.6 %; PLT - PLATELET COUNT 312 10^3/uL (130-450); RED BLOOD COUNT 5.91 10^6/uL (4.20-5.40); RED CELL DISTRIBUTION WIDTH 12.9 % (12.0-15.0); WHITE BLOOD COUNT 7.3 x10^3/uL (4.8-10.8)
[2020-09-06 05:39] LABS: ABNORMAL LYMPHS % (MANUAL) 0 %
[2020-09-06 06:20] LABS: ALBUMIN 3.6 g/dL (3.2-5.5); ALBUMIN/GLOBULIN RATIO 1.4 (1.0-2.2); BILIRUBIN,TOTAL 0.9 mg/dL (0.2-1.0); CALCIUM 7.9 mg/dL (8.5-10.3); CREATININE 0.6 mg/dL (0.4-1.0); TOTAL PROTEIN 6.2 g/dL (6.7-8.2)
[2020-09-06 06:24] LABS: BAND NEUTROPHILS % (MANUAL) 11 %; LYMPHOCYTES # (MANUAL) 0.7 10^3/uL (1.5-3.5); LYMPHOCYTES % (MANUAL) 10 %; MONOCYTES # (MANUAL) 0.3 10^3/uL (0.0-1.0); MYELOCYTES % (MANUAL) 1 %; PLATELET ESTIMATE, MANUAL NORMAL (130-450,000) (NORMAL); PLATELET MORPHOLOGY NORMAL APPEARANCE (NORMAL); RBC MORPHOLOGY (MULTIPLE) NORMAL APPEARANCE (NORMAL)
[2020-09-06 06:25] LABS: DIFFERENTIAL COMMENT MANUAL DIFFERENTIAL
[2020-09-06 06:34] LABS: CHOL/HDL RATIO 2.5 (<4.4); CHOLESTEROL 144 mg/dL; HDL CHOLESTEROL 58 mg/dL; LDL CHOLESTEROL,CALCULATED 74 mg/dL; LDL/HDL RATIO 1.3 (<4.4); VLDL CHOLESTEROL 12 mg/dL
[2020-09-06] MEDS: ENOXAPARIN 40 MG/0.4 ML SYRINGE SUBQ SCH (08:23)
--- NOTE | 2020-09-06 09:16 | PHARMACY PROGRESS NOTE ---
- Best Possible Medication History Admit Date and Time: 09/05/20 1738 Processed by: Pharmacy Medication History completed: Yes Patient Interview: Completed Secondary Source(s): Insurance records As the person ultimately responsible for medication therapy, providers are able to order a medication from an existing home medication list in [facility] via the "Reconcile Routine" prior to Confirmation of that medication by landing support specialist. Such practice is discouraged except when the physician, in their clinical judgment, deems that a medical need exists for a medication without regard to previous use.
[2020-09-06] MEDS: PROMETHAZINE INJ 25 MG in SODIUM CHLORIDE 0.9% 50 ML IV PRN (09:28)
[2020-09-06 13:49] LABS: BASOPHILS # (AUTO) 0.1 10^3/uL (0.0-0.1); BASOPHILS % (AUTO) 0.7 %; EOSINOPHILS # (AUTO) 0.1 10^3/uL (0.0-0.7); EOSINOPHILS % (AUTO) 1.4 %; HGB - HEMOGLOBIN 17.3 g/dL (12.0-16.0); LYMPHOCYTES # (AUTO) 0.6 10^3/uL (1.5-3.5); MEAN CORPUSCULAR HGB CONC 32.6 g/dL (32.0-36.0); MEAN PLATELET VOLUME 9.7 fL (7.9-10.8); MONOCYTES # (AUTO) 0.4 10^3/uL (0.0-1.0); MONOCYTES % (AUTO) 4.3 %; NEUTROPHILS # (AUTO) 7.8 10^3/uL (1.5-6.6); NEUTROPHILS % (AUTO) 86.6 %; PLT - PLATELET COUNT 303 10^3/uL (130-450); RED BLOOD COUNT 5.77 10^6/uL (4.20-5.40); RED CELL DISTRIBUTION WIDTH 13.3 % (12.0-15.0)
--- NOTE | 2020-09-06 14:00 | CONSULTATION NOTE ---
Referring Provider Name of Referring Provider:: Jerel Hyde Consult Date: 09/06/20 Chief Complaint - Chief Complaint Chief Complaint: Pancreatitis and abdominal pain. History of Present Illness - Admitted From Admitted From:: ED - History Obtained From Records Reviewed: Provider's notes History obtained from: Patient and providers Exam Limitations: Patient discomfort - History of Present Illness HPI Comment/Other: Iris is a very pleasant 75-year-old lady who presented to the emergency room yesterday afternoon complaining of abrupt onset of abdominal pain. She reports that she was in her usual state of health when she began having severe pain in a bandlike pattern around her abdominal wall. She was afraid she was having an massive heart attack and so she presented to the emergency room in the emergency room she was found to be diaphoretic and a considerable amount of discomfort. She was seen and evaluated by Dr. Miguel and found to have a large but somewhat reducible and soft ventral hernia. She was also noted to have pancreatitis with some evidence of possible pericholecystic fluid. She is not a candidate for MRCP as she does have history of back surgery with metal implants.Today she reports that her pain is better but she is still quite tender. She reports that the hernia has been present for at least 30 years. She does not really think it significantly different than it has been in the pastThough she admits that it is more tender now than it has been.She has not had any nausea or vomiting at home.She denies any sick contacts.She has never had similar symptoms.She reports that currently she is exhausted and "weak as a kitten" but not as uncomfortable as she was upon presentation to the emergency room. 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 DUB Resulted in hysterectomy.) : reports: Incontinence Musculoskeletal: reports: Chronic back pain (with sciatica), Other (left leg schwanoma removed) MRSA Hx?: No - Past Surgical History /RFID STRATEGIST: reports: Hysterectomy Cardiovascular: reports: Vascular surgery (left leg vein ligation) Derm: reports: Skin cancer surgery - Family & Social History Family History Comment/Other: Dad at age 64 of a massive heart attack. Mom at 84 of complications of dementia. One half sister of recurrent melanoma. 1 sister has severe irritable bowel syndrome. 1 brother recently developed a bladder mass. 3 children are completely healthy Living arrangement: At home Living Situation: Alone Social History Notes: She has been since the 1970s. Retired. Lives in her own home. Started smoking at the age of 19 and stop smoking at the age of 69. She smoked up to 1 pack/day giving her a 62-iqcg-pcte history. She was an alcoholic. She has been sober for 30 years and has not had a drink since then. No other history of recreational substance abuse. - Substance History Use: Uses substance without health or social issues: NONE Abuse: Recurrent use of substance despite neg consequences: NONE Dependence: Experiences withdrawal or developed tolerances: NONE - POLST Patient has POLST: No POLST Status: Full Code Meds/Allgy - Home Medications Home Medications: Ambulatory Orders Medication Instructions Recorded Confirmed Biotin 5,000 mcg PO DAILY 07/14/17 09/06/20 Mirbetriq 25 mg PO DAILY 07/14/17 09/06/20 lisinopriL [Lisinopril] 10 mg PO DAILY 07/14/17 09/06/20 Alendronate [Fosamax] 70 mg PO .WEEKLY 09/06/20 09/06/20 Atorvastatin [Lipitor] 20 mg PO DAILY 09/06/20 09/06/20 Cetirizine [ZyrTEC] 10 mg PO DAILY 09/06/20 09/06/20 amLODIPine [Norvasc] 5 mg PO DAILY 09/06/20 09/06/20 - Allergies Allergies/Adverse Reactions: Allergies Allergy/AdvReac Type Severity Reaction Status Date / Time oxycodone HCl * Allergy Hives Verified 09/05/20 14:35 [From Percocet] Penicillins Allergy Rash Verified 09/05/20 14:35 Sulfa (Sulfonamide Allergy Rash Verified 09/05/20 14:35 Antibiotics) Review of Systems - Constitutional Constitutional: reports: Fatigue, Weakness. denies: Fever, Chills, Malaise - Eyes Eyes: denies: Pain, Blurred vision - Ears, Nose & Throat Ears, Nose & Throat: denies: Tinnitus, Vertigo - Cardiovascular Cariovascular: reports: Chest pain, Lightheadedness. denies: Irregular heart rate, Palpitations - Respiratory Respiratory: denies: Cough, Sputum production - Gastrointestinal Gastrointestinal: reports: Abdominal pain. denies: Abdominal distention, Constipation, Diarrhea, Change in bowel habits, Rectal bleeding, Black stools, Bloody stools, Nausea, Vomiting - Genitourinary Genitourinary: denies: Dysuria, Frequency - Musculoskeletal Musculoskeletal: reports: Joint pain - Integumentary Integumentary: denies: Rash, Pruritis - All Other Systems All Other Systems: reports: Reviewed and negative Exam - Vital Signs Reviewed Vital Signs: Yes Vital Signs: Vital Signs x48h Temp Pulse Resp BP Pulse Ox 09/06/20 08:20 36.4 C L 106 H 22 126/61 92 - Physical Exam General Appearance: positive: Alert, Mild distress Eyes Bilateral: positive: Normal inspection, PERRL, EOMI ENT: positive: ENT inspection nml, Pharynx nml Neck: positive: Thyroid nml, No JVD Respiratory: positive: Chest non-tender, No respiratory distress, Breath sounds nml Cardiovascular: positive: Regular rate & rhythm Peripheral Pulses: positive: 0 Abdomen: positive: Nml bowel sounds, Tenderness, Guarding, Other (Soft, moderately tender, and at least partially reducible epigastric hernia with borborygmi). negative: No distention, Rebound Skin: positive: Color nml, No rash Extremities: positive: Non-tender, No pedal edema Neurologic/Psychiatric: positive: Oriented x3 Conclusion and Plan - Lab Results Laboratory Results 09/06/20 13:37: WBC 9.0, RBC 5.77 H, Hgb 17.3 H, Hct 53.1 H, MCV 92.0, MCH 30.0, MCHC 32.6, RDW 13.3, Plt Count 303, MPV 9.7, Neut # (Auto) 7.8 H, Lymph # (Auto) 0.6 L, [place] # (Auto) 0.4, Eos # (Auto) 0.1, Baso # (Auto) 0.1, Absolute Nucleated RBC 0.00, Nucleated RBC % 0.0 09/06/20 05:25: Triglycerides 59, Cholesterol 144, LDL Cholesterol, Calc 74, VLDL Cholesterol 12, HDL Cholesterol 58 L, LDL/HDL Ratio 1.3, Cholesterol/HDL Ratio 2.5 09/06/20 05:25: Sodium 139, Potassium 4.5, Chloride 110, Carbon Dioxide 21, Anion Gap 8.0, BUN 18, Creatinine 0.6, Estimated GFR (MDRD) 97, Glucose 192 H, Calcium 7.9 L, Total Bilirubin 0.9, AST 52 H, ALT 64 H, Alkaline Phosphatase 43, Total Protein 6.2 L, Albumin 3.6, Globulin 2.6, Albumin/Globulin Ratio 1.4, Lipase 816 H 09/06/20 05:25: WBC 7.3, RBC 5.91 H, Hgb 17.6 H, Hct 53.9 H, MCV 91.2, MCH 29.8, MCHC 32.7, RDW 12.9, Plt Count 312, MPV 9.6, Neut # (Auto) Not Reportable, Lymph # (Auto) Not Reportable, [place] # (Auto) Not Reportable, Eos # (Auto) Not Reportable, Baso # (Auto) Not Reportable, Absolute Nucleated RBC Not Reportable, Total Counted 100, Band Neuts % (Manual) 11 H, Abnorm Lymph % (Manual) 0, Myelocytes % 1 H, Nucleated RBC % Not Reportable, Neutrophils # (Manual) 6.2, Lymphocytes # (Manual) 0.7 L, Monocytes # (Manual) 0.3, Eosinophils # (Manual) 0.0, Basophils # (Manual) 0.0, Differential Comment MANUAL DIFFERENTIAL, WBC Morphology NORMAL APPEARANCE, Platelet Estimate NORMAL (130-450,000), Platelet Morphology NORMAL APPEARANCE, RBC Morph Micro Appear NORMAL APPEARANCE 09/06/20 01:44: Troponin I High Sens 7.9 09/05/20 16:05: Nasal Adenovirus (PCR) NOT DETECTED, Nasal B. parapertussis DNA (PCR) NOT DETECTED, Nasal Coronavir 229E PCR NOT DETECTED, Nasal Coronavir HKU1 PCR NOT DETECTED, Nasal Coronavir NL63 PCR NOT DETECTED, Nasal Coronavir OC43 PCR NOT DETECTED, Nasal Enterovir/Rhinovir PCR NOT DETECTED, Nasal Influenza B PCR NOT DETECTED, Nasal Influenza A PCR NOT DETECTED, Nasal Parainfluen 1 PCR NOT DETECTED, Nasal Parainfluen 2 PCR NOT DETECTED, Nasal Parainfluen 3 PCR NOT DETECTED, Nasal Parainfluen 4 PCR NOT DETECTED, Nasal RSV (PCR) NOT DETECTED, Nasal B.pertussis DNA PCR NOT DETECTED, Nasal C.pneumoniae (PCR) NOT DETECTED, Richar Human Metapneumo PCR NOT DETECTED, Nasal M.pneumoniae (PCR) NOT DETECTED, Nasal SARS-CoV-2 (PCR) NOT DETECTED 09/05/20 14:45: B-Natriuretic Peptide 35 09/05/20 14:45: Troponin I High Sens 2.6 09/05/20 14:45: Sodium 139, Potassium 3.5, Chloride 99 L, Carbon Dioxide 25, Anion Gap 15.0 H, BUN 18, Creatinine 0.6, Estimated GFR (MDRD) 97, Glucose 226 H, Calcium 9.7, Magnesium 1.9, Total Bilirubin 1.0, AST 77 H, ALT 62 H, Alkaline Phosphatase 64, Total Protein 7.7, Albumin 4.7, Globulin 3.0, Albumin/Globulin Ratio 1.6, Lipase 2544 H 09/05/20 14:45: WBC 18.2 H, RBC 4.96, Hgb 15.0, Hct 45.4, MCV 91.5, MCH 30.2, MCHC 33.0, RDW 12.7, Plt Count 310, MPV 9.5, Neut # (Auto) 15.8 H, Lymph # (Auto) 1.5, [place] # (Auto) 0.7, Eos # (Auto) 0.0, Baso # (Auto) 0.1, Absolute Nucleated RBC 0.00, Nucleated RBC % 0.0 - Diagnostic Imaging Results Diagnostic Imaging Results: positive: Final report reviewed Diagnostic Imaging Results Comments: EXAM: [id number] US/ABDLTD ([id number]) PROCEDURE: Abdomen Limited INDICATIONS: RUQ pain, distended GB on CT; lipase elevated TECHNIQUE: Real-time focused scanning was performed of the abdomen, with image documentation. COMPARISON: Correlation is made with the CT abdomen and pelvis examination previously performed on 09/05/2020. FINDINGS: The liver demonstrates normal size and echogenicity. No liver lesions are detected. 2 small liver cysts are seen, which measure up to 7 mm The gallbladder is distended. Potential sludge is seen within it. The gallbladder wall is minimally thickened at 4 mm. No specific pericholecystic fluid can be seen. The sonographic Monet's sign is equivocal, as the patient is on pain medication. No biliary ductal dilatation is seen. The common bile duct measures 6 mm. The pancreas is not well seen, secondary to overlying bowel gas. The visualized right kidney is unremarkable. IMPRESSION: Distended gallbladder again seen. Potential sludge is seen within it. There is minimal gallbladder wall thickening. The sonographic Monet's sign is considered to be equivocal, as the patient is on pain medication. Note: Concordant preliminary findings given by the acute care nurse upon the completion of the examination to Dr. Miguel at 4:50 PM on 09/05/2020. Reviewed by: Monroe Mohan MD on 09/05/2020 4:19 PM [place] Approved by: Monroe Mohan MD on 09/05/2020 4:19 PM [place] EXAM: [id number] CT/ABPEW ([id number]) PROCEDURE: Abdomen/Pelvis W INDICATIONS: RUQ abd pain abrupt onset few hours ago CONTRAST: IV CONTRAST: Optiray 320 ml: 100 PO CONTRAST: *NO PO CONTRAST TECHNIQUE: After the administration of IV contrast, 5 mm thick sections acquired from the diaphragms to the symphysis. 5 mm thick coronal and sagittal reformats were acquired. For radiation dose reduction, the following was used: automated exposure control, adjustment of mA and/or kV according to patient size. COMPARISON: None. FINDINGS: Image quality: Excellent. ABDOMEN: Lung bases: Dependent atelectasis in posterior aspect of bilateral lung bases are seen. Heart size is enlarged, no pericardial effusion. Solid organs: Liver and spleen are normal in size. Tiny hypodensities are seen in right hepatic lobe measures up to 5 mm in size and is are too small to characterize. Gallbladder is distended with questionable pericholecystic edema/fluid. No significant gallbladder wall thickening. No calcified gallstone is seen. Biliary system is non dilated. Pancreas enhances normally. No adrenal nodules. Kidneys demonstrate normal size and enhancement, without hydronephrosis. Lower pole left renal cyst is seen measures 3.6 x 3.9 cm in size. Peritoneum and bowel: There is a moderate-sized upper anterior abdominal wall defect measures 4.6 cm in diameter containing mid to distal portion of stomach lumen and proximal duodenum. There is suggestion of gastric and duodenal wall thickening with adjacent mesenteric fat stranding concerning for incarceration. More distal small bowel loops are nondistended. No other area of abnormal bowel wall thickening. No free fluid or free air. Appendix is visualized and is within normal limits. Nodes and vessels: No retroperitoneal or mesenteric adenopathy by size criteria. Aorta and inferior vena cava are normal in size. Moderate atherosclerotic calcifications are seen throughout the abdominal aorta. Miscellaneous: Upper anterior abdominal wall ventral hernia as above. PELVIS: Genitourinary: Bladder wall thickness is normal. Miscellaneous: No inguinal hernias or adenopathy. Bones: No suspicious bony lesions. No vertebral body compression fractures. Extensive fusion of lower thoracic and upper lumbar spine is seen. IMPRESSION: 1. Moderate size anterior upper abdominal wall defect containing distal gastric lumen and proximal duodenum with gastric and duodenal wall thickening and mild adjacent mesenteric fat stranding concerning for developing incarceration. No other area of abnormal bowel wall thickening. No free fluid or free air. Normal appendix. 2. Gallbladder is mildly distended with questionable pericholecystic fluid. No calcified gallstone. A calculus cholecystitis cannot be entirely excluded. 3. Tiny 3 to 5 mm hypodensity seen in right hepatic lobe and are too small to adequately characterize. Finding likely represent benign process such as hepatic cysts. Reviewed by: Krish Blackmon MD on 09/05/2020 3:34 PM PST Approved by: Krish Blackmon MD on 09/05/2020 3:34 PM PST - Diagnosis Diagnosis: Pancreatitis. Incarcerated ventral hernia - Plan Plan: NGT was placed and Iris was re-examined. The hernia is soft and moderately tender to palpation. She reports it is as it has been for 30 years, no better and no worse. Her abdominal pain is still significant but much improved over last evening. She is notably hemoconcentrated but without signs of overt sepsis from abdominal source. I have recommended NGT decompression and fluid resuscitation. If her heart rate drops with fluid resuscitation and her pain continues to improve, we can continue to treat conservatively and eventually plan for laparoscopic ventral hernia repair and possibly lap guillermina. If her condition deteriorates or pain escalates, I would recommend transfer for ERCP and or repair of incarcerated ventral hernia. In the setting of active pancreatitis, she is not an appropriate surgical candidate for our facility.
[2020-09-06] MEDS ORDERED: SODIUM CHLORIDE 0.9% 500 ML IV ONE (14:07)
--- NOTE | 2020-09-06 15:16 | XRAY Report ---
PROCEDURE: Chest for Line Placement INDICATIONS: NG placed TECHNIQUE: One view of the chest was acquired. COMPARISON: Chest x-ray, one view, 09/05/2020. FINDINGS: Surgical changes and devices: There is a nasogastric tube with the tip projecting to the area of the stomach. No thoracic and upper lumbar spine fusion with intact hardware. Lungs and pleura: Lung volumes are small consistent with shallow inspiration. Bibasilar atelectasis. Mild interstitial prominence. No pleural effusions or pneumothorax. Mediastinum: Mediastinal contours appear normal. Heart size is normal. Bones and chest wall: No suspicious bony lesions. Overlying soft tissues appear unremarkable. IMPRESSION: The tip of the nasogastric tube is in the stomach. Reviewed by: Sofie Rosas MD on 09/06/2020 3:15 PM PST Approved by: Sofie Rosas MD on 09/06/2020 3:15 PM PST Station ID: [id number]
--- NOTE | 2020-09-06 15:37 | PROVIDER PROGRESS NOTE ---
Assessment/Plan - Problem List (1) Acute pancreatitis Qualifiers: Pancreatitis type: unspecified pancreatitis type Acute pancreatitis complication: unspecified Qualified Code(s): K85.90 - Acute pancreatitis without necrosis or infection, unspecified Assessment/Plan: Most likely etiology is gallstone pancreatitis and fears that the gallstone has already passed. Lipase is decreased from 2544 down to 869 today, with bowel rest and IV fluid management. She is showing signs of third spacing: Tachycardic, blood pressure not elevated but is "soft" and she herself thinks her fingers and hands are getting more edematous. General surgery consult will be requested>> Dr Anna saw pt and recommended an ng tube for decompression and increase iv fluids, as she is third spacing from the pancreatic inflammation. Continue IV narcotics for pain control. No MRCP is planned since she has metal in her spine. If there is no significant improvement, she would need transfer for an ERCP. Follow lipase daily. Follow WBC daily. Follow BMP daily. (2) Ventral hernia Assessment/Plan: Patient has had this for many decades. Yesterday CT scan showed that there is stranding in the bowel which is within the hernia. General surgery consult was also requested for this>> Dr Anna saw the patient and reviewed CT. Her impression is that this is scarring not stranding from acute inflammation. The NG tube for decompression is also for this. (3) Dehydration Assessment/Plan: Hemoglobin increased from 15 to 17 this morning. It was repeated to assure there was no lab error and indeed hemoglobin is increasing. This is consistent with intravascular dehydration due third spacing. Her persistent tachycardia, "soft" BP and poor urine output are also signs of d ehydration. Patient does not have significant peripheral edema. We will give a fluidf bolus and increase IV fluid rate. Follow BMP, magnesium, calcium, phosphorus daily. (4) Hx of essential hypertension Assessment/Plan: Her BP meds (Lisinopril and Amlodipine) are on hold, since she is n.p.o. and also blood pressure is "soft", not elevated. (5) Chronic back pain Qualifiers: Back pain location: low back pain Assessment/Plan: She has metal in her spine therefore no MRI can be done. Her IV morphine is currently controlling all pain sources. (6) Hyperglycemia Assessment/Plan: There is D5 in her fluid but this may also be caused by pancreatic i nsufficiency. Will follow BMP daily. Check A1c - Current Meds Current Meds: Current Medications Generic Name Dose Route Start Last Admin Trade Name Freq PRN Reason Stop Dose Admin Enoxaparin Sodium 40 mg 09/05/20 20:51 09/06/20 08:23 Enoxaparin 40 Mg/0.4 Ml Syringe SUBQ 40 mg DAILY JALIL Administration Promethazine HCl 25 mg/ Sodium 51 mls @ 100 mls/hr 09/05/20 20:17 09/06/20 10:14 Chloride IV Infused Q6H PRN Infusion Nausea / Vomiting Morphine Sulfate 2 mg 09/05/20 20:18 09/06/20 09:06 Morphine 2 Mg/Ml Carpuject IVP 2 mg Q2HR PRN Administration PAIN Ondansetron HCl 4 mg 09/05/20 20:17 09/06/20 06:21 Ondansetron 4 Mg/2 Ml Vial IVP 4 mg Q4HR PRN Administration Nausea / Vomiting - Lab Result Fish Bone Diagrams: 09/06/20 13:37 09/06/20 05:25 - Additional Planning My Orders: My Active Orders 09/05/20 17:39 Vital Signs [RC] QSHIFT DIET [NPO] [DIET] 09/06/20 General Surgery Consult [CONS] Routine Evaluate and Treat PT [PT] Routine 09/06/20 14:40 D5ns W/20 Meq KCl 1,000 ml IV 200 mls/hr 09/06/20 15:33 NG Tube Care [RC] Q4HR Subjective - Subjective Patient Reports: Feeling Better, Pain (Still has pain that is requiring morphine IV. Today the ventral hernia area is the most pain) Objective Vital Signs: Vital Signs - 24 hr 09/05/20 09/05/20 09/05/20 17:05 17:33 18:02 Temperature Heart Rate 100 105 H 104 H Heart Rate [ Brachial] Respiratory 27 H 30 H 34 H Rate Blood Pressure 156/67 H 154/87 H 165/72 H Blood Pressure [Right Brachial artery] O2 Saturation 92 97 96 09/05/20 09/05/20 09/06/20 18:27 23:48 08:20 Temperature 36.6 C 36.7 C 36.4 C L Heart Rate Heart Rate [ 104 H 107 H 106 H Brachial] Respiratory 24 16 22 Rate Blood Pressure Blood Pressure 157/60 H 169/64 H 126/61 [Right Brachial artery] O2 Saturation 94 93 92 Oxygen O2 Source Room air I&O (Last 24 Hrs): Intake and Output Totals x24h 09/04/20 09/05/20 09/06/20 23:59 23:59 23:59 Intake Total 1276 3065.167 Output Total 800 500 Balance 476 2565.167 General: Alert, Oriented x3 HEENT: Mucous membr. moist/pink Neck: Supple, No JVD Neuro: Alert, Non Focal, Other (She is sleepy after receiving morphine for pain but easily arousable.) Cardiovascular: Regular rate, No murmurs Respiratory: No respiratory distress, Breath sounds nml Abdomen: Normal bowel sounds, Soft, Other (Ventral hernia with tenderness to palpation in that area.) Extremities: No clubbing, No edema - Results Results: Laboratory Results WBC 9.0 x10^3/uL (4.8-10.8) 09/06/20 13:37 RBC 5.77 10^6/uL (4.20-5.40) H 09/06/20 13:37 Hgb 17.3 g/dL (12.0-16.0) H 09/06/20 13:37 Hct 53.1 % (37.0-47.0) H 09/06/20 13:37 MCV 92.0 fL (81.0-99.0) 09/06/20 13:37 MCH 30.0 pg (27.0-31.0) 09/06/20 13:37 MCHC 32.6 g/dL (32.0-36.0) 09/06/20 13:37 RDW 13.3 % (12.0-15.0) 09/06/20 13:37 Plt Count 303 10^3/uL (130-450) 09/06/20 13:37 MPV 9.7 fL (7.9-10.8) 09/06/20 13:37 Neut # (Auto) 7.8 10^3/uL (1.5-6.6) H 09/06/20 13:37 Lymph # (Auto) 0.6 10^3/uL (1.5-3.5) L 09/06/20 13:37 [place] # (Auto) 0.4 10^3/uL (0.0-1.0) 09/06/20 13:37 Eos # (Auto) 0.1 10^3/uL (0.0-0.7) 09/06/20 13:37 Baso # (Auto) 0.1 10^3/uL (0.0-0.1) 09/06/20 13:37 Absolute Nucleated RBC 0.00 x10^3/uL 09/06/20 13:37 Total Counted 100 09/06/20 05:25 Band Neuts % (Manual) 11 % (0-10) H 09/06/20 05:25 Abnorm Lymph % (Manual) 0 % 09/06/20 05:25 Myelocytes % 1 % (-0) H 09/06/20 05:25 Nucleated RBC % 0.0 /100WBC 09/06/20 13:37 Neutrophils # (Manual) 6.2 10^3/uL (1.5-6.6) 09/06/20 05:25 Lymphocytes # (Manual) 0.7 10^3/uL (1.5-3.5) L 09/06/20 05:25 Monocytes # (Manual) 0.3 10^3/uL (0.0-1.0) 09/06/20 05:25 Eosinophils # (Manual) 0.0 10^3/uL (0-0.7) 09/06/20 05:25 Basophils # (Manual) 0.0 10^3/uL (0-0.1) 09/06/20 05:25 Differential Comment MANUAL DIFFERENTIAL 09/06/20 05:25 WBC Morphology NORMAL APPEARANCE (NORMAL) 09/06/20 05:25 Platelet Estimate NORMAL (130-450,000) (NORMAL) 09/06/20 05:25 Platelet Morphology NORMAL APPEARANCE (NORMAL) 09/06/20 05:25 RBC Morph Micro Appear NORMAL APPEARANCE (NORMAL) 09/06/20 05:25 Sodium 139 mmol/L (135-145) 09/06/20 05:25 Potassium 4.5 mmol/L (3.5-5.0) 09/06/20 05:25 Chloride 110 mmol/L (101-111) 09/06/20 05:25 Carbon Dioxide 21 mmol/L (21-32) 09/06/20 05:25 Anion Gap 8.0 (6-13) 09/06/20 05:25 BUN 18 mg/dL (6-20) 09/06/20 05:25 Creatinine 0.6 mg/dL (0.4-1.0) 09/06/20 05:25 Estimated GFR (MDRD) 97 (>89) 09/06/20 05:25 Glucose 192 mg/dL (70-100) H 09/06/20 05:25 Calcium 7.9 mg/dL (8.5-10.3) L 09/06/20 05:25 Magnesium 1.9 mg/dL (1.7-2.8) 09/05/20 14:45 Total Bilirubin 0.9 mg/dL (0.2-1.0) 09/06/20 05:25 AST 52 IU/L (10-42) H 09/06/20 05:25 ALT 64 IU/L (10-60) H 09/06/20 05:25 Alkaline Phosphatase 43 IU/L (42-121) 09/06/20 05:25 Troponin I High Sens 7.9 ng/L (2.3-14.8) 09/06/20 01:44 B-Natriuretic Peptide 35 pg/mL (5-100) 09/05/20 14:45 Total Protein 6.2 g/dL (6.7-8.2) L 09/06/20 05:25 Albumin 3.6 g/dL (3.2-5.5) 09/06/20 05:25 Globulin 2.6 g/dL (2.1-4.2) 09/06/20 05:25 Albumin/Globulin Ratio 1.4 (1.0-2.2) 09/06/20 05:25 Triglycerides 59 mg/dL (-149) 09/06/20 05:25 Cholesterol 144 mg/dL (-199) 09/06/20 05:25 LDL Cholesterol, Calc 74 mg/dL (-129) 09/06/20 05:25 VLDL Cholesterol 12 mg/dL 09/06/20 05:25 HDL Cholesterol 58 mg/dL (60-) L 09/06/20 05:25 LDL/HDL Ratio 1.3 (<4.4) 09/06/20 05:25 Cholesterol/HDL Ratio 2.5 (<4.4) 09/06/20 05:25 Lipase 816 U/L (22-51) H 09/06/20 05:25 Nasal Adenovirus (PCR) NOT DETECTED 09/05/20 16:05 Nasal B. parapertussis DNA (PCR) NOT DETECTED 09/05/20 16:05 Nasal Coronavir 229E PCR NOT DETECTED 09/05/20 16:05 Nasal Coronavir HKU1 PCR NOT DETECTED 09/05/20 16:05 Nasal Coronavir NL63 PCR NOT DETECTED 09/05/20 16:05 Nasal Coronavir OC43 PCR NOT DETECTED 09/05/20 16:05 Nasal Enterovir/Rhinovir PCR NOT DETECTED 09/05/20 16:05 Nasal Influenza B PCR NOT DETECTED 09/05/20 16:05 Nasal Influenza A PCR NOT DETECTED 09/05/20 16:05 Nasal Parainfluen 1 PCR NOT DETECTED 09/05/20 16:05 Nasal Parainfluen 2 PCR NOT DETECTED 09/05/20 16:05 Nasal Parainfluen 3 PCR NOT DETECTED 09/05/20 16:05 Nasal Parainfluen 4 PCR NOT DETECTED 09/05/20 16:05 Nasal RSV (PCR) NOT DETECTED 09/05/20 16:05 Nasal B.pertussis DNA PCR NOT DETECTED 09/05/20 16:05 Nasal C.pneumoniae (PCR) NOT DETECTED 09/05/20 16:05 Richar Human Metapneumo PCR NOT DETECTED 09/05/20 16:05 Nasal M.pneumoniae (PCR) NOT DETECTED 09/05/20 16:05 Nasal SARS-CoV-2 (PCR) NOT DETECTED 09/05/20 16:05
[2020-09-07] MEDS: D5NS W/20 MEQ KCL 1,000 ML IV SCH ×3 (02:41→17:06)
[2020-09-07 05:25] LABS: BASOPHILS % (AUTO) 0.5 %; EOSINOPHILS # (AUTO) 0.1 10^3/uL (0.0-0.7); EOSINOPHILS % (AUTO) 0.9 %; HGB - HEMOGLOBIN 15.4 g/dL (12.0-16.0); LYMPHOCYTES # (AUTO) 0.8 10^3/uL (1.5-3.5); LYMPHOCYTES % (AUTO) 8.6 %; MEAN CORPUSCULAR HEMOGLOBIN 29.6 pg (27.0-31.0); MEAN CORPUSCULAR HGB CONC 31.6 g/dL (32.0-36.0); MEAN CORPUSCULAR VOLUME 93.8 fL (81.0-99.0); MEAN PLATELET VOLUME 9.7 fL (7.9-10.8); MONOCYTES # (AUTO) 0.3 10^3/uL (0.0-1.0); MONOCYTES % (AUTO) 3.3 %; NEUTROPHILS # (AUTO) 7.5 10^3/uL (1.5-6.6); NEUTROPHILS % (AUTO) 86.1 %; PLT - PLATELET COUNT 229 10^3/uL (130-450); RED CELL DISTRIBUTION WIDTH 13.5 % (12.0-15.0); WHITE BLOOD COUNT 8.7 x10^3/uL (4.8-10.8)
[2020-09-07 05:41] LABS: ALBUMIN/GLOBULIN RATIO 1.3 (1.0-2.2); BILIRUBIN,TOTAL 0.8 mg/dL (0.2-1.0); CALCIUM 7.1 mg/dL (8.5-10.3); CREATININE 0.7 mg/dL (0.4-1.0); MAGNESIUM 1.8 mg/dL (1.7-2.8); PHOSPHORUS 1.3 mg/dL (2.5-4.6); TOTAL PROTEIN 5.4 g/dL (6.7-8.2)
[2020-09-07 05:46] LABS: PLATELET ESTIMATE, MANUAL NORMAL (130-450,000) (NORMAL); PLATELET MORPHOLOGY NORMAL APPEARANCE (NORMAL); RBC MORPHOLOGY (MULTIPLE) NORMAL APPEARANCE (NORMAL)
[2020-09-07] MEDS: ENOXAPARIN 40 MG/0.4 ML SYRINGE SUBQ SCH (08:48)
[2020-09-07] MEDS ORDERED: SODIUM PHOSPHATE 20 MMOL in SODIUM CHLORIDE 0.9% 250 ML IV ONE (09:12)
[2020-09-07 13:16] LABS: HEMOGLOBIN A1c% 5.6 % (4.27-6.07)
[2020-09-07] MEDS: ONDANSETRON 4 MG/2 ML VIAL IVP PRN ×2 (16:15→23:03)
--- NOTE | 2020-09-07 16:29 | PROVIDER PROGRESS NOTE ---
Subjective - Prog Note Date Prog Note Date: 09/07/20 Prog Note Time: 16:27 - Subjective Pt reports feeling: Improved Subjective: Iris reports her pain is much improved today. She reports her abdomen still feels a little sore but she denies any nausea and reports that the pain that brought her to the hospital has essentially resolved. She is hungry. She reports that she is passing flatus. She says her abdomen is still may be a little swollen but she feels like her hernia is as it has been for the last 30 years. Current Medications - Current Medications Current Medications: Active Medications Generic Name Dose Route Start Last Admin Trade Name Freq PRN Reason Stop Dose Admin Enoxaparin Sodium 40 mg 09/05/20 20:51 09/07/20 08:48 Enoxaparin 40 Mg/0.4 Ml Syringe SUBQ 40 mg DAILY JALIL Administration Hydralazine HCl 10 mg 09/05/20 20:18 Hydralazine Inj 20 Mg/Ml Vial IVP TID PRN Hypertensive Emergency Promethazine HCl 25 mg/ Sodium 51 mls @ 100 mls/hr 09/05/20 20:17 09/06/20 10:14 Chloride IV Infused Q6H PRN Infusion Nausea / Vomiting Potassium Chloride/Dextrose/Sod Cl 1,000 mls @ 100 mls/hr 09/07/20 07:36 09/07/20 07:44 IV 100 mls/hr .Q10H JALIL Administration Morphine Sulfate 2 mg 09/05/20 20:18 09/06/20 09:06 Morphine 2 Mg/Ml Carpuject IVP 2 mg Q2HR PRN Administration PAIN Ondansetron HCl 4 mg 09/05/20 20:17 09/07/20 16:15 Ondansetron 4 Mg/2 Ml Vial IVP 4 mg Q4HR PRN Administration Nausea / Vomiting Biotin 5,000 mcg PO DAILY 07/14/17 Mirbetriq 25 mg PO DAILY 07/14/17 lisinopriL [Lisinopril] 10 mg PO DAILY 07/14/17 Alendronate [Fosamax] 70 mg PO .WEEKLY 09/06/20 Atorvastatin [Lipitor] 20 mg PO DAILY 09/06/20 Cetirizine [ZyrTEC] 10 mg PO DAILY 09/06/20 amLODIPine [Norvasc] 5 mg PO DAILY 09/06/20 Objective - Vital Signs/Intake & Output Reviewed Vital Signs: Yes Vital Signs: Vital Signs x48h Temp Pulse Pulse Resp BP BP Pulse Ox 09/07/20 11:34 36.5 C 98 22 165/78 H 94 09/07/20 11:15 101 H 181/67 H Intake & Output: Intake & Output 09/04/20 09/05/20 09/06/20 09/07/20 23:59 23:59 23:59 23:59 Intake Total 1276 4371.334 3410 Output Total 637 143 2773 Balance 476 3871.334 1810 - Objective General Appearance: positive: No acute distress, Alert Eyes Bilateral: positive: Normal inspection, PERRL, EOMI Respiratory: positive: Chest non-tender, No respiratory distress, Breath sounds nml Cardiovascular: positive: Regular rate & rhythm Abdomen: positive: Other (Minimal tenderness to palpation in the epigastrium. The hernia remains incarcerated but is nontender. Borborygmi within the hernia is still appreciated.) Skin: positive: Color nml - Lab Results Fish Bones: 09/07/20 05:17 09/07/20 05:17 Other Labs: Lab Results x24hrs 09/07/20 09/07/20 09/07/20 Range/Units 11:32 05:17 05:17 WBC (4.8-10.8) x10^3/uL RBC (4.20-5.40) 10^6/uL Hgb (12.0-16.0) g/dL Hct (37.0-47.0) % MCV (81.0-99.0) fL MCH (27.0-31.0) pg MCHC (32.0-36.0) g/dL RDW (12.0-15.0) % Plt Count (130-450) 10^3/uL MPV (7.9-10.8) fL Neut # (Auto) (1.5-6.6) 10^3/uL Lymph # (Auto) (1.5-3.5) 10^3/uL [place] # (Auto) (0.0-1.0) 10^3/uL Eos # (Auto) (0.0-0.7) 10^3/uL Baso # (Auto) (0.0-0.1) 10^3/uL Absolute Nucleated RBC x10^3/uL Nucleated RBC % /100WBC Manual Slide Review Platelet Estimate (NORMAL) Platelet Morphology (NORMAL) RBC Morph Micro Appear (NORMAL) Sodium 142 (135-145) mmol/L Potassium 4.8 (3.5-5.0) mmol/L Chloride 115 H (101-111) mmol/L Carbon Dioxide 20 L (21-32) mmol/L Anion Gap 7.0 (6-13) BUN 23 H (6-20) mg/dL Creatinine 0.7 (0.4-1.0) mg/dL Estimated GFR (MDRD) 81 L (>89) Glucose 183 H (70-100) mg/dL POC Whole Bld Glucose 141 H (70 - 100) mg/dL Estimat Average Glucose 114 H (70-100) mg/dL Hemoglobin A1c % 5.6 (4.27-6.07) % Calcium 7.1 L (8.5-10.3) mg/dL Phosphorus 1.3 L (2.5-4.6) mg/dL Magnesium 1.8 (1.7-2.8) mg/dL Total Bilirubin 0.8 (0.2-1.0) mg/dL AST 30 (10-42) IU/L ALT 40 (10-60) IU/L Alkaline Phosphatase 42 (42-121) IU/L Total Protein 5.4 L (6.7-8.2) g/dL Albumin 3.0 L (3.2-5.5) g/dL Globulin 2.4 (2.1-4.2) g/dL Albumin/Globulin Ratio 1.3 (1.0-2.2) Lipase 170 H (22-51) U/L 09/07/20 09/07/20 09/06/20 Range/Units 05:17 00:06 18:35 WBC 8.7 (4.8-10.8) x10^3/uL RBC 5.20 (4.20-5.40) 10^6/uL Hgb 15.4 (12.0-16.0) g/dL Hct 48.8 H (37.0-47.0) % MCV 93.8 (81.0-99.0) fL MCH 29.6 (27.0-31.0) pg MCHC 31.6 L (32.0-36.0) g/dL RDW 13.5 (12.0-15.0) % Plt Count 229 (130-450) 10^3/uL MPV 9.7 (7.9-10.8) fL Neut # (Auto) 7.5 H (1.5-6.6) 10^3/uL Lymph # (Auto) 0.8 L (1.5-3.5) 10^3/uL [place] # (Auto) 0.3 (0.0-1.0) 10^3/uL Eos # (Auto) 0.1 (0.0-0.7) 10^3/uL Baso # (Auto) 0.0 (0.0-0.1) 10^3/uL Absolute Nucleated RBC 0.00 x10^3/uL Nucleated RBC % 0.0 /100WBC Manual Slide Review Indicated Platelet Estimate NORMAL (130-450,000) (NORMAL) Platelet Morphology NORMAL APPEARANCE (NORMAL) RBC Morph Micro Appear NORMAL APPEARANCE (NORMAL) Sodium (135-145) mmol/L Potassium (3.5-5.0) mmol/L Chloride (101-111) mmol/L Carbon Dioxide (21-32) mmol/L Anion Gap (6-13) BUN (6-20) mg/dL Creatinine (0.4-1.0) mg/dL Estimated GFR (MDRD) (>89) Glucose (70-100) mg/dL POC Whole Bld Glucose 151 H 212 H (70 - 100) mg/dL Estimat Average Glucose (70-100) mg/dL Hemoglobin A1c % (4.27-6.07) % Calcium (8.5-10.3) mg/dL Phosphorus (2.5-4.6) mg/dL Magnesium (1.7-2.8) mg/dL Total Bilirubin (0.2-1.0) mg/dL AST (10-42) IU/L ALT (10-60) IU/L Alkaline Phosphatase (42-121) IU/L Total Protein (6.7-8.2) g/dL Albumin (3.2-5.5) g/dL Globulin (2.1-4.2) g/dL Albumin/Globulin Ratio (1.0-2.2) Lipase (22-51) U/L Assessment/Plan - Problem List (1) Acute pancreatitis Impression: Definitely improving. I have removed her NG tube and she will continue with clear liquids this evening. As long as her pain continues to improve, we could advance to low-fat diet tomorrow and consider discharge in the afternoon. She is going to need an outpatient ERCP since she is not a candidate for MRCP. I have also recommended that once we clear up the pancreatitis issue, we should give serious consideration to fixing this epigastric hernia before it causes real issues. Qualifiers: Pancreatitis type: unspecified pancreatitis type Acute pancreatitis complic ation: unspecified Qualified Code(s): K85.90 - Acute pancreatitis without necrosis or infection, unspecified
--- NOTE | 2020-09-07 19:20 | PROVIDER PROGRESS NOTE ---
Assessment/Plan - Problem List (1) Acute pancreatitis Qualifiers: Pancreatitis type: unspecified pancreatitis type Acute pancreatitis complication: unspecified Qualified Code(s): K85.90 - Acute pancreatitis without necrosis or infection, unspecified Assessment/Plan: This continues to improve. Patient's lipase today was 170. At time of admission lipase level was 2544. Patient's IV fluids was decreased 100 mL/h The pancreatitis was believed to be due to a gallstone which has been passed. The patient was seen by Dr. Anna with general surgery who recommends an ERCP in the outpatient setting. No MRCP can be done due to metal in her spine. NG tube was removed today. Patient tolerated clear liquid diet well. Will advance diet tomorrow. Anticipated discharge later in the afternoon. (2) Ventral hernia Assessment/Plan: Chronic. Patient was seen by Dr. Anna She reviewed CT abdomen pelvis and is of the opinion that the findings are due to scaring and not fat stranding of bowel loops in the ventral hernia. She recommended an NG tube placement for decompression. This was in place for at least 24 hours. It was clamped this morning and a clear liquid diet was initiated which the patient tolerated well. The NG tube was removed later this afternoon. We will advance patient's diet tomorrow and if tolerated well plan for discharge in the afternoon. The patient would need to follow-up in the outpatient setting for discussion about addressing differential hernia in the future before it becomes a problem. She is aware of this recommendation. (3) Chronic back pain Qualifiers: Back pain location: low back pain Assessment/Plan: Pain management as needed (4) Dehydration Assessment/Plan: Patient was on IV hydration with D5 normal saline with 20 mEq of potassium chloride at 200ml/hr for at least 12 hours. This was decreased to 100 ml/hr. Will continue hydration (5) Hypertension Qualifiers: Hypertension type: essential hypertension Qualified Code(s): I10 - Essential (primary) hypertension Assessment/Plan: Hydralazine 10 mg IV 3 times daily as needed (6) Constipation Assessment/Plan: Patient was initially given MiraLAX. Then she was subsequently given mag citrate - Current Meds Current Meds: Current Medications Generic Name Dose Route Start Last Admin Trade Name Freq PRN Reason Stop Dose Admin Enoxaparin Sodium 40 mg 09/05/20 20:51 09/07/20 08:48 Enoxaparin 40 Mg/0.4 Ml Syringe SUBQ 40 mg DAILY JALIL Administration Hydralazine HCl 10 mg 09/05/20 20:18 09/07/20 17:03 Hydralazine Inj 20 Mg/Ml Vial IVP 10 mg TID PRN Administration Hypertensive Emergency Promethazine HCl 25 mg/ Sodium 51 mls @ 100 mls/hr 09/05/20 20:17 09/06/20 10:14 Chloride IV Infused Q6H PRN Infusion Nausea / Vomiting Potassium Chloride/Dextrose/Sod Cl 1,000 mls @ 100 mls/hr 09/07/20 07:36 09/07/20 17:06 IV 100 mls/hr .Q10H JALIL Administration Morphine Sulfate 2 mg 09/05/20 20:18 09/06/20 09:06 Morphine 2 Mg/Ml Carpuject IVP 2 mg Q2HR PRN Administration PAIN Ondansetron HCl 4 mg 09/05/20 20:17 09/07/20 16:15 Ondansetron 4 Mg/2 Ml Vial IVP 4 mg Q4HR PRN Administration Nausea / Vomiting - Lab Result Fish Bone Diagrams: 09/07/20 05:17 09/07/20 05:17 - Additional Planning My Orders: My Active Orders 09/07/20 00:13 Straight Catheter Insertion [RC] PRN 09/07/20 Breakfast Clear Liquid Diet [DIET] 09/07/20 07:36 D5ns W/20 Meq KCl 1,000 ml IV 100 mls/hr Subjective - Subjective Patient Reports: Other (Patient was resting in bed at time of exam. She complains of feeling bloated. She denied any abdominal pain, nausea or vomiting. She has been passing gas. Tolerated her clear liquid diet well. She denied chest pain or dyspnea.) Objective Vital Signs: Vital Signs - 24 hr 09/06/20 09/07/20 09/07/20 21:00 00:01 03:55 Temperature 36.5 C 36.7 C 36.6 C Heart Rate [ Activity] Heart Rate [ 108 H 111 H 104 H Brachial] Respiratory 18 18 20 Rate Blood Pressure Blood Pressure [Activity] Blood Pressure 166/70 H 158/63 H 165/62 H [Right Brachial artery] O2 Saturation 95 94 96 09/07/20 09/07/20 09/07/20 05:34 07:48 11:15 Temperature 36.8 C Heart Rate [ 101 H Activity] Heart Rate [ 96 Brachial] Respiratory 24 Rate Blood Pressure Blood Pressure 181/67 H [Activity] Blood Pressure 174/74 H [Right Brachial artery] O2 Saturation 92 92 09/07/20 09/07/20 09/07/20 11:34 16:57 17:02 Temperature 36.5 C 36.5 C Heart Rate [ Activity] Heart Rate [ 98 107 H 100 Brachial] Respiratory 22 18 Rate Blood Pressure Blood Pressure [Activity] Blood Pressure 165/78 H 182/70 H 195/68 H [Right Brachial artery] O2 Saturation 94 94 09/07/20 09/07/20 09/07/20 17:03 17:07 17:12 Temperature Heart Rate [ Activity] Heart Rate [ 100 99 Brachial] Respiratory Rate Blood Pressure 195/68 H Blood Pressure [Activity] Blood Pressure 183/67 H 166/58 H [Right Brachial artery] O2 Saturation 09/07/20 09/07/20 17:15 17:33 Temperature Heart Rate [ Activity] Heart Rate [ 100 Brachial] Respiratory Rate Blood Pressure 162/62 H Blood Pressure [Activity] Blood Pressure 162/64 H [Right Brachial artery] O2 Saturation Oxygen O2 Source Room air I&O (Last 24 Hrs): Intake and Output Totals x24h 09/05/20 09/06/20 09/07/20 23:59 23:59 23:59 Intake Total 1276 4371.334 4903.3337 Output Total 869 465 9268 Balance 476 3871.334 3303.3337 General: Alert, Oriented x3, Cooperative, Mild distress HEENT: PERRLA, EOMI Neck: Supple, No JVD Neuro: Alert, Non Focal, Oriented Times 3 Cardiovascular: Other (mildy tachycardic) Respiratory: Chest non-tender, No respiratory distress, Breath sounds nml Abdomen: Normal bowel sounds, Soft, No tenderness, Other (ventral hernia) Extremities: No clubbing, No edema Skin: No rashes - Results Results: Laboratory Results WBC 8.7 x10^3/uL (4.8-10.8) 09/07/20 05:17 RBC 5.20 10^6/uL (4.20-5.40) 09/07/20 05:17 Hgb 15.4 g/dL (12.0-16.0) 09/07/20 05:17 Hct 48.8 % (37.0-47.0) H 09/07/20 05:17 MCV 93.8 fL (81.0-99.0) 09/07/20 05:17 MCH 29.6 pg (27.0-31.0) 09/07/20 05:17 MCHC 31.6 g/dL (32.0-36.0) L 09/07/20 05:17 RDW 13.5 % (12.0-15.0) 09/07/20 05:17 Plt Count 229 10^3/uL (130-450) 09/07/20 05:17 MPV 9.7 fL (7.9-10.8) 09/07/20 05:17 Neut # (Auto) 7.5 10^3/uL (1.5-6.6) H 09/07/20 05:17 Lymph # (Auto) 0.8 10^3/uL (1.5-3.5) L 09/07/20 05:17 [place] # (Auto) 0.3 10^3/uL (0.0-1.0) 09/07/20 05:17 Eos # (Auto) 0.1 10^3/uL (0.0-0.7) 09/07/20 05:17 Baso # (Auto) 0.0 10^3/uL (0.0-0.1) 09/07/20 05:17 Absolute Nucleated RBC 0.00 x10^3/uL 09/07/20 05:17 Total Counted 100 09/06/20 05:25 Band Neuts % (Manual) 11 % (0-10) H 09/06/20 05:25 Abnorm Lymph % (Manual) 0 % 09/06/20 05:25 Myelocytes % 1 % (-0) H 09/06/20 05:25 Nucleated RBC % 0.0 /100WBC 09/07/20 05:17 Neutrophils # (Manual) 6.2 10^3/uL (1.5-6.6) 09/06/20 05:25 Lymphocytes # (Manual) 0.7 10^3/uL (1.5-3.5) L 09/06/20 05:25 Monocytes # (Manual) 0.3 10^3/uL (0.0-1.0) 09/06/20 05:25 Eosinophils # (Manual) 0.0 10^3/uL (0-0.7) 09/06/20 05:25 Basophils # (Manual) 0.0 10^3/uL (0-0.1) 09/06/20 05:25 Differential Comment MANUAL DIFFERENTIAL 09/06/20 05:25 Manual Slide Review Indicated 09/07/20 05:17 WBC Morphology NORMAL APPEARANCE (NORMAL) 09/06/20 05:25 Platelet Estimate NORMAL (130-450,000) (NORMAL) 09/07/20 05:17 Platelet Morphology NORMAL APPEARANCE (NORMAL) 09/07/20 05:17 RBC Morph Micro Appear NORMAL APPEARANCE (NORMAL) 09/07/20 05:17 Sodium 142 mmol/L (135-145) 09/07/20 05:17 Potassium 4.8 mmol/L (3.5-5.0) 09/07/20 05:17 Chloride 115 mmol/L (101-111) H 09/07/20 05:17 Carbon Dioxide 20 mmol/L (21-32) L 09/07/20 05:17 Anion Gap 7.0 (6-13) 09/07/20 05:17 BUN 23 mg/dL (6-20) H 09/07/20 05:17 Creatinine 0.7 mg/dL (0.4-1.0) 09/07/20 05:17 Estimated GFR (MDRD) 81 (>89) L 09/07/20 05:17 Glucose 183 mg/dL (70-100) H 09/07/20 05:17 POC Whole Bld Glucose 146 mg/dL (70 - 100) H 09/07/20 17:58 Estimat Average Glucose 114 mg/dL (70-100) H 09/07/20 05:17 Hemoglobin A1c % 5.6 % (4.27-6.07) 09/07/20 05:17 Calcium 7.1 mg/dL (8.5-10.3) L 09/07/20 05:17 Phosphorus 1.3 mg/dL (2.5-4.6) L 09/07/20 05:17 Magnesium 1.8 mg/dL (1.7-2.8) 09/07/20 05:17 Total Bilirubin 0.8 mg/dL (0.2-1.0) 09/07/20 05:17 AST 30 IU/L (10-42) 09/07/20 05:17 ALT 40 IU/L (10-60) 09/07/20 05:17 Alkaline Phosphatase 42 IU/L (42-121) 09/07/20 05:17 Troponin I High Sens 7.9 ng/L (2.3-14.8) 09/06/20 01:44 B-Natriuretic Peptide 35 pg/mL (5-100) 09/05/20 14:45 Total Protein 5.4 g/dL (6.7-8.2) L 09/07/20 05:17 Albumin 3.0 g/dL (3.2-5.5) L 09/07/20 05:17 Globulin 2.4 g/dL (2.1-4.2) 09/07/20 05:17 Albumin/Globulin Ratio 1.3 (1.0-2.2) 09/07/20 05:17 Triglycerides 59 mg/dL (-149) 09/06/20 05:25 Cholesterol 144 mg/dL (-199) 09/06/20 05:25 LDL Cholesterol, Calc 74 mg/dL (-129) 09/06/20 05:25 VLDL Cholesterol 12 mg/dL 09/06/20 05:25 HDL Cholesterol 58 mg/dL (60-) L 09/06/20 05:25 LDL/HDL Ratio 1.3 (<4.4) 09/06/20 05:25 Cholesterol/HDL Ratio 2.5 (<4.4) 09/06/20 05:25 Lipase 170 U/L (22-51) H 09/07/20 05:17 Nasal Adenovirus (PCR) NOT DETECTED 09/05/20 16:05 Nasal B. parapertussis DNA (PCR) NOT DETECTED 09/05/20 16:05 Nasal Coronavir 229E PCR NOT DETECTED 09/05/20 16:05 Nasal Coronavir HKU1 PCR NOT DETECTED 09/05/20 16:05 Nasal Coronavir NL63 PCR NOT DETECTED 09/05/20 16:05 Nasal Coronavir OC43 PCR NOT DETECTED 09/05/20 16:05 Nasal Enterovir/Rhinovir PCR NOT DETECTED 09/05/20 16:05 Nasal Influenza B PCR NOT DETECTED 09/05/20 16:05 Nasal Influenza A PCR NOT DETECTED 09/05/20 16:05 Nasal Parainfluen 1 PCR NOT DETECTED 09/05/20 16:05 Nasal Parainfluen 2 PCR NOT DETECTED 09/05/20 16:05 Nasal Parainfluen 3 PCR NOT DETECTED 09/05/20 16:05 Nasal Parainfluen 4 PCR NOT DETECTED 09/05/20 16:05 Nasal RSV (PCR) NOT DETECTED 09/05/20 16:05 Nasal B.pertussis DNA PCR NOT DETECTED 09/05/20 16:05 Nasal C.pneumoniae (PCR) NOT DETECTED 09/05/20 16:05 Richar Human Metapneumo PCR NOT DETECTED 09/05/20 16:05 Nasal M.pneumoniae (PCR) NOT DETECTED 09/05/20 16:05 Nasal SARS-CoV-2 (PCR) NOT DETECTED 09/05/20 16:05 ABX Reporting Has patient been on IV antibiotics over the past 48 hours?: No
[2020-09-07] MEDS: polyethylene glycoL 3350 17 GM PACKET PO SCH (20:33)
[2020-09-07] MEDS ORDERED: MAGNESIUM CITRATE 296 ML BOTTLE PO PRN (22:07)
[2020-09-08] MEDS ORDERED: PROCHLORPERAZINE 5 MG TABLET PO PRN (00:22)
[2020-09-08] MEDS: D5NS W/20 MEQ KCL 1,000 ML IV SCH ×2 (03:11→13:14)
[2020-09-08 05:50] LABS: BASOPHILS % (AUTO) 0.5 %; EOSINOPHILS % (AUTO) 0.7 %; HGB - HEMOGLOBIN 13.4 g/dL (12.0-16.0); LYMPHOCYTES % (AUTO) 7.5 %; MEAN CORPUSCULAR HEMOGLOBIN 29.7 pg (27.0-31.0); MEAN CORPUSCULAR HGB CONC 32.1 g/dL (32.0-36.0); MEAN CORPUSCULAR VOLUME 92.7 fL (81.0-99.0); MEAN PLATELET VOLUME 9.9 fL (7.9-10.8); MONOCYTES % (AUTO) 3.2 %; PLT - PLATELET COUNT 163 10^3/uL (130-450); RED BLOOD COUNT 4.51 10^6/uL (4.20-5.40); RED CELL DISTRIBUTION WIDTH 13.2 % (12.0-15.0); WHITE BLOOD COUNT 8.4 x10^3/uL (4.8-10.8)
[2020-09-08 05:52] LABS: ABNORMAL LYMPHS % (MANUAL) 0 %
[2020-09-08] MEDS: ONDANSETRON 4 MG/2 ML VIAL IVP PRN (05:53)
[2020-09-08 06:04] LABS: ALBUMIN 2.8 g/dL (3.2-5.5); ALBUMIN/GLOBULIN RATIO 1.1 (1.0-2.2); BILIRUBIN,TOTAL 1.1 mg/dL (0.2-1.0); CALCIUM 6.9 mg/dL (8.5-10.3); CREATININE 0.4 mg/dL (0.4-1.0); MAGNESIUM 2.4 mg/dL (1.7-2.8); TOTAL PROTEIN 5.3 g/dL (6.7-8.2)
[2020-09-08 06:17] LABS: BAND NEUTROPHILS % (MANUAL) 6 %; DIFFERENTIAL COMMENT MANUAL DIFFERENTIAL; LYMPHOCYTES # (MANUAL) 0.8 10^3/uL (1.5-3.5); LYMPHOCYTES % (MANUAL) 10 %; MONOCYTES # (MANUAL) 0.1 10^3/uL (0.0-1.0); PLATELET ESTIMATE, MANUAL NORMAL (130-450,000) (NORMAL); PLATELET MORPHOLOGY NORMAL APPEARANCE (NORMAL); RBC MORPHOLOGY (MULTIPLE) NORMAL APPEARANCE (NORMAL)
[2020-09-08] MEDS ORDERED: MIN OIL/DIMETHICON/COCONUT OIL 92 GM TUBE TOP PRN (06:28)
[2020-09-08] MEDS ORDERED: NEUTRA-PHOS 250 MG TABLET PO SCH (08:00)
[2020-09-08] MEDS: ENOXAPARIN 40 MG/0.4 ML SYRINGE SUBQ SCH (08:23)
[2020-09-08] MEDS: polyethylene glycoL 3350 17 GM PACKET PO SCH (08:25)
--- NOTE | 2020-09-08 14:53 | PROVIDER PROGRESS NOTE ---
Subjective - Prog Note Date Prog Note Date: 09/08/20 Prog Note Time: 12:00 - Subjective Pt reports feeling: Improved Subjective: Iris reports her abdominal pain is much improved. She had a "rough night" as she received some laxatives last evening and was busy in the bathroom all night. She is better this AM. Objective - Vital Signs/Intake & Output Vital Signs: Vital Signs x48h Temp Pulse Resp BP Pulse Ox 09/08/20 11:36 36.5 C 95 20 124/57 L 94 09/08/20 09:13 100 94 Intake & Output: Intake & Output 09/05/20 09/06/20 09/07/20 09/08/20 23:59 23:59 23:59 23:59 Intake Total 1276 4371.334 5203.3337 3690 Output Total 551 629 7749 Balance 476 3871.334 3603.3337 3690 - Objective General Appearance: positive: No acute distress Eyes Bilateral: positive: Normal inspection Abdomen: positive: Other (soft, minimal tenderness to palpation now. Hernia is palpable and non tender.) - Lab Results Fish Bones: 09/08/20 05:25 09/08/20 05:25 Other Labs: Lab Results x24hrs 09/08/20 09/08/20 09/07/20 Range/Units 05:25 05:25 23:56 WBC 8.4 (4.8-10.8) x10^3/uL RBC 4.51 (4.20-5.40) 10^6/uL Hgb 13.4 (12.0-16.0) g/dL Hct 41.8 (37.0-47.0) % MCV 92.7 (81.0-99.0) fL MCH 29.7 (27.0-31.0) pg MCHC 32.1 (32.0-36.0) g/dL RDW 13.2 (12.0-15.0) % Plt Count 163 (130-450) 10^3/uL MPV 9.9 (7.9-10.8) fL Neut # (Auto) Not Reportable Lymph # (Auto) Not Reportable [place] # (Auto) Not Reportable Eos # (Auto) Not Reportable Baso # (Auto) Not Reportable Absolute Nucleated RBC Not Reportable Total Counted 100 Band Neuts % (Manual) 6 (0 - 10) % Abnorm Lymph % (Manual) 0 % Nucleated RBC % Not Reportable Neutrophils # (Manual) 7.5 H (1.5-6.6) 10^3/uL Lymphocytes # (Manual) 0.8 L (1.5-3.5) 10^3/uL Monocytes # (Manual) 0.1 (0.0-1.0) 10^3/uL Eosinophils # (Manual) 0.0 (0-0.7) 10^3/uL Basophils # (Manual) 0.0 (0-0.1) 10^3/uL Differential Comment MANUAL DIFFERENTIAL WBC Morphology NORMAL APPEARANCE (NORMAL) Platelet Estimate NORMAL (130-450,000) (NORMAL) Platelet Morphology NORMAL APPEARANCE (NORMAL) RBC Morph Micro Appear NORMAL APPEARANCE (NORMAL) Sodium 137 (135-145) mmol/L Potassium 3.5 (3.5-5.0) mmol/L Chloride 109 (101-111) mmol/L Carbon Dioxide 20 L (21-32) mmol/L Anion Gap 8.0 (6-13) BUN 12 (6-20) mg/dL Creatinine 0.4 (0.4-1.0) mg/dL Estimated GFR (MDRD) 155 (>89) Glucose 146 H (70-100) mg/dL POC Whole Bld Glucose 132 H (70 - 100) mg/dL Calcium 6.9 L (8.5-10.3) mg/dL Phosphorus 1.0 L* (2.5-4.6) mg/dL Magnesium 2.4 (1.7-2.8) mg/dL Total Bilirubin 1.1 H (0.2-1.0) mg/dL AST 28 (10-42) IU/L ALT 30 (10-60) IU/L Alkaline Phosphatase 53 (42-121) IU/L Total Protein 5.3 L (6.7-8.2) g/dL Albumin 2.8 L (3.2-5.5) g/dL Globulin 2.5 (2.1-4.2) g/dL Albumin/Globulin Ratio 1.1 (1.0-2.2) Lipase 43 (22-51) U/L 09/07/20 Range/Units 17:58 WBC (4.8-10.8) x10^3/uL RBC (4.20-5.40) 10^6/uL Hgb (12.0-16.0) g/dL Hct (37.0-47.0) % MCV (81.0-99.0) fL MCH (27.0-31.0) pg MCHC (32.0-36.0) g/dL RDW (12.0-15.0) % Plt Count (130-450) 10^3/uL MPV (7.9-10.8) fL Neut # (Auto) Lymph # (Auto) [place] # (Auto) Eos # (Auto) Baso # (Auto) Absolute Nucleated RBC Total Counted Band Neuts % (Manual) (0 - 10) % Abnorm Lymph % (Manual) % Nucleated RBC % Neutrophils # (Manual) (1.5-6.6) 10^3/uL Lymphocytes # (Manual) (1.5-3.5) 10^3/uL Monocytes # (Manual) (0.0-1.0) 10^3/uL Eosinophils # (Manual) (0-0.7) 10^3/uL Basophils # (Manual) (0-0.1) 10^3/uL Differential Comment WBC Morphology (NORMAL) Platelet Estimate (NORMAL) Platelet Morphology (NORMAL) RBC Morph Micro Appear (NORMAL) Sodium (135-145) mmol/L Potassium (3.5-5.0) mmol/L Chloride (101-111) mmol/L Carbon Dioxide (21-32) mmol/L Anion Gap (6-13) BUN (6-20) mg/dL Creatinine (0.4-1.0) mg/dL Estimated GFR (MDRD) (>89) Glucose (70-100) mg/dL POC Whole Bld Glucose 146 H (70 - 100) mg/dL Calcium (8.5-10.3) mg/dL Phosphorus (2.5-4.6) mg/dL Magnesium (1.7-2.8) mg/dL Total Bilirubin (0.2-1.0) mg/dL AST (10-42) IU/L ALT (10-60) IU/L Alkaline Phosphatase (42-121) IU/L Total Protein (6.7-8.2) g/dL Albumin (3.2-5.5) g/dL Globulin (2.1-4.2) g/dL Albumin/Globulin Ratio (1.0-2.2) Lipase (22-51) U/L Assessment/Plan - Problem List (1) Acute pancreatitis Impression: Pancreatitis is resolving. Treatment of her Gall bladder disease is complicated by hernia. It is impossible to do an ERCP under current circumstances. She will need repair of her hernia and also likely cholecystectomy. It is possible we could perform direct repair of the her and cholecystectomy a the same time as long as the patient is willing to accept a higher hernia recurrence rate. A second option is repair of the hernia followed by ERCP, followed by cholecystectomy. We need to allow her pancreas to cool off completely before planning any extensive operative intervention in the elective setting. If she is able to tolerate a low fat diet, she could be discharged to home with plans to follow up with me in 1 week. Qualifiers: Pancreatitis type: unspecified pancreatitis type Acute pancreatitis complication: unspecified Qualified Code(s): K85.90 - Acute pancreatitis without necrosis or infection, unspecified
--- NOTE | 2020-09-08 16:02 | Discharge Plan ---
Discharge Plan Problem Reviewed?: Yes Disposition: Home, Self Care Condition: Stable Diet: Regular (low fat, small meals) Activity Restrictions: Activity as Tolerated Shower Restrictions: No Driving Restrictions: No Instruction Topics: Pancreatitis, Pancreatitis Acute Dc Health Concerns: You presented to our emergency room after having an abrupt onset of abdominal pain right in the middle, underneath the rib cage. It was going up into under your chest and you thought you were having a heart attack. In our emergency room we found you to have an episode of acute pancreatitis with probably a passed common bile duct stone. You were admitted for pain management, nausea management, and to keep your IV fluids going to make sure you do not get dehydrated. You will need to have an endoscopic retrograde cholangiopancreatogram which is a long word of a dye study through your pancreas and common bile duct. However, in order to do that, your ventral hernia has to be repaired since your hernia sac has part of your stomach and it. You will not be able to do the dye study until you get your hernia repaired. Down the road you also may need your gallbladder removed. Plan of Treatment: 1. You will see your primary care provider in follow-up, Dr. Davey, to discuss all of this. I have already called his office and left him a message that you are leaving the hospital today and what you need to see him for in follow-up. 2. If you are wanting your hernia repair per Dr. Anglin, you will see Dr. Gali Anglin in follow-up 3. Dr. Gali Anglin will then schedule the ERCP after your hernia repair at [facility] 4. Please eat small, frequent meals that are low-fat. This will help avoid recurrent episodes of either sludge, gallstones, and pancreatitis. You cannot have any alcohol at all. Care Goals: To have your hernia repaired and not have any further episodes of pancreatitis Assessment: Patient understands care goals and will discuss them carefully with her primary care provider as the best way to how to achieve them No Smoking: If you smoke, Please STOP! Call for help. Follow-up with: MARNIE DAVEY SI [Primary Care Provider] - Gaby Anna MD [Provider Admit Priv/Credential] -
--- NOTE | 2020-09-08 17:42 | DISCHARGE SUMMARY ---
Discharge Summary Admit Date: 09/05/20 Discharge Date: 09/08/20 Discharging Provider: Joann Hadley MD Primary Care Provider: Albert Johnson MD Code Status: Attempt Resuscitation Condition at Discharge: Stable Discharge Disposition: 01 Home, Self Care - DIAGNOSES Discharge Diagnoses with Status of Each Condition: 1. acute pancreatitis 2. ventral hernia 3. dehydration 4. hx of essential HTN 5. chronic back pain 6. constipation 7. Diarrhea - HPI History of Present Illness: 75-year-old white female whose main medical problem in the past has been high blood pressure. She was seen in 2017 in our emergency room for shingles of the right leg, as well as superficial thrombophlebitis of the left leg a few months later. She has been in her normal state of health. No antecedent changes with regards to diet, alcohol use. She does not have a history of gallstones. No history of use of hydrochlorothiazide or proton pump numbers. She is on an SYLVIA inhibitor for blood pressure. She came to the emergency room around 230 this afternoon. At breakfast she had a nausea after eating. Then at 10:30 in the morning she had an abrupt onset of epigastric abdominal pain. She describes it as a "band of pain around my chest". She was short of breath with it, nauseated, pale and clammy. He would radiate up into the substernal area. She drove her self to the emergency room her blood pressure was 174/48. Respirations were 22. She was 98% on room air. She was afraid she was having a heart attack so she came. She was evaluated by Dr. Miguel who found her to have a soft, easily reducible large ventral hernia. She did have right upper quadrant tenderness with guarding. Diminished bowel sounds. She was in considerable pain and quite diaphoretic. EKG was negative for ST changes, and troponins were normal. Abdomen CT was done and she had a moderate-sized upper anterior abdominal wall defect with hernia that included the distal gastric lumen and part of the duodenum. Some stranding. Moderate gallbladder distention with possible pericholecystic fluid. Normal appendix. The ultrasound report said it was limited due to her hernia but her common bile duct was only 5 mm. No gallbladder thickening or surrounding fluid. No stones. White cell count was elevated at 18.2. Random glucose 226. AST 77, ALT 62. Alk phos normal at 6.4. Total bili 1.0. Lipase was 2544. Dr. Miugel contacted the daytime hospitalist. They did preliminary admit orders. I am now seeing the patient is a, shift at [address] Gali Anglin has already been contacted. She does not feel that the patient is a surgical candidate at this time. 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 DUB Resulted in hysterectomy.) : reports: Incontinence Musculoskeletal: reports: Chronic back pain (with sciatica), Other (left leg schwanoma removed) MRSA Hx?: No - Past Surgical History /PERSONAL [employer] INSURANCE AGENT: reports: Hysterectomy Cardiovascular: reports: Vascular surgery (left leg vein ligation) Derm: reports: Skin cancer surgery - CONSULTS | PROCEDURES Consultations: Gali Anna general surgery Procedures: 1. Admission chest x-ray with mild congestion, no definite infiltrates. No effusions. 2. Abdomen pelvis CT on admission with dependent atelectasis. Liver and spleen normal. Tiny hypodensities in the right hepatic lobe. Gallbladder distended with questionable pericholecystic edema and fluid. No gallbladder wall thickening. Biliary system nondilated. Left pole renal cyst. Moderate size upper anterior abdominal wall defect measuring 4.5 cm. It contains the mid to distal portion of the stomach lumen and proximal duodenum. There is some strip fat stranding concerning for incarceration. 3. Gallbladder ultrasound with normal size and echogenicity of the liver. No liver lesions. Gallbladder distended with potential sludge. Gallbladder wall minimally thickened. Monet sign equivocal. No biliary ductal dilatation. Pancreas not well seen. 4. Chest - HOSPITAL COURSE Hospital Course: She was treated his pancreatitis. Kept n.p.o. except for ice chips. Maintain on IV fluids, antiemetics, pain medicine. General surgery was consulted. This patient will need an ERCP because she cannot have an MRCP due to metal in her back. However because of the ventral hernia with the stomach in the ventral hernia, she cannot get the ERCP either. We waited for her pancreatitis symptoms to improve. General surgery felt the patient was stable for discharge. Small frequent low-fat meals. She is to be reseen by general surgery to get the ventral hernia repaired, and then subsequent ERCP and then gallbladder resection. At discharge temperature was 36.7. Heart rate 96. Blood pressure 167/65. Respirations of 24. 94% on room air. She is 5 foot tall and weighs 67 kg. Hypophosphatemia was treated with IV and oral supplementation. Anxious affect. She symptoms get short of breath with trying to walk in the room and then quickly recovers. No desaturations. Lungs have diminished breath sounds at the bases, but were clear without use of accessory muscles. Regular rate and rhythm. Abdomen had mild epigastric discomfort but no rebound or guarding. Trace pitting edema around the ankles. She has a foot drop that is chronic and present on admission. Greater than 30 minutes was spent coordinating discharge. Discussing medications and diet with the patient. Discussing the case with Dr. Anna. She will return to see Dr. Anna in the near future. - ALLERGIES Allergies/Adverse Reactions: Allergies Allergy/AdvReac Type Severity Reaction Status Date / Time oxycodone HCl * Allergy Hives Verified 09/05/20 14:35 [From Percocet] Penicillins Allergy Rash Verified 09/05/20 14:35 Sulfa (Sulfonamide Allergy Rash Verified 09/05/20 14:35 Antibiotics) - MEDICATIONS Home Medications: Ambulatory Orders Medication Instructions Recorded Confirmed Biotin 5,000 mcg PO DAILY 07/14/17 09/06/20 Mirbetriq 25 mg PO DAILY 07/14/17 09/06/20 lisinopriL [Lisinopril] 10 mg PO DAILY 07/14/17 09/06/20 Alendronate [Fosamax] 70 mg PO .WEEKLY 09/06/20 09/06/20 Atorvastatin [Lipitor] 20 mg PO DAILY 09/06/20 09/06/20 Cetirizine [ZyrTEC] 10 mg PO DAILY 09/06/20 09/06/20 amLODIPine [Norvasc] 5 mg PO DAILY 09/06/20 09/06/20 - LABS Result Diagrams: 09/08/20 05:25 09/08/20 05:25
[2020-09-08 17:46] VITALS: BP 167/65
== END 2020-09-08 18:10 | disposition home or self-care (01) | DRG 440 ==
LOC: ED 14:30 → MS2 17:38
PROVIDERS: ADMIT Internal Medicine; ATTEND Specialist
DX: K85.90 Acute pancreatitis without necrosis or infection, unspecified (principal); K43.9 Ventral hernia without obstruction or gangrene; I10 Essential (primary) hypertension; E86.0 Dehydration; G89.29 Other chronic pain; M54.40 Lumbago with sciatica, unspecified side; K59.00 Constipation, unspecified; R32 Unspecified urinary incontinence; M21.379 Foot drop, unspecified foot; F10.21 Alcohol dependence, in remission; K82.8 Other specified diseases of gallbladder; Z86.72 Personal history of thrombophlebitis; Z87.891 Personal history of nicotine dependence; Z79.899 Other long term (current) drug therapy
CPT/HCPCS: 36415; 71045; 74177; 76705; 80053; 80061; 83036; 83690; 83735; 83880; 84100; 84484; 85025; 87631; 93005; 96361; 96374; 96375; 96376; 97162; 99284; 99285; A6250; A9270; J1170; J1650; J7040; J7120; Q9967; 0202U; 83721